=== PATIENT | female | born 1950 | race Caucasian/White ===

== ENCOUNTER 2016-07-25 09:17 | Day surgery (SDC) | payer BC ==
[2016-07-20 13:47] VITALS: BMI 41.4
[~2016-07-25 09:17] MED LIST: LACTATED RINGERS 1,000 ML IV SCH; LIDOCAINE 1% 20 ML VIAL (10MG/ML) FOR IV START INTRADERMA PRN
[2016-07-25 10:41] VITALS: RESP 16; TEMP 97.4
[2016-07-25] MEDS ORDERED: PROPOFOL 10 MG/ML 20 ML VIAL IV ONE (11:27)
--- NOTE | 2016-07-25 12:00 | P.PCN ---
Date of Procedure: 07/25/16 Procedure(s) Performed: Procedure: Total colonoscopy. Preoperative diagnosis: Screening for neoplasia. Postoperative diagnosis: Sigmoid diverticulosis with no evidence of acute diverticulitis, strictures, polyps or cancer. Preparation: HalfLytely prep. Sedation: Was provided by anesthesia. Brief clinical history: The patient is a 65-year-old female who is referred for this evaluation for screening for neoplasia. She had a prior exam around 10 years ago. There is also family history of colon cancer in her paternal grandmother. At this time, she has no abdominal complaints, bleeding or anemia. Procedure: With the patient on her left lateral decubitus position and after informed consent and adequate sedation, the perianal area was inspected and it did not show any fissures or fistulas. There were no masses felt on digital rectal examination. The Olympus CFQ 160L video colonoscope was then inserted in the rectum in the usual fashion and advanced to the cecum. There were multiple diverticular orifices seen scattered in the sigmoid and there was some mucosal changes in the vicinity of diverticular orifices including erythema and submucosal hemorrhages that could represent prior bouts of diverticulitis. Elsewhere, the mucosa appeared healthy. No polyps or tumors were seen. I retroflexed endoscope in the rectum before the endoscope was withdrawn. The patient tolerated the procedure well. Plan: The patient was reassured. Discussed dietary measures. I recommended repeat exam in around 10 years. She will follow-up with you as planned.
[2016-07-25 12:17] VITALS: BP 119/81; PULSE 74
== END 2016-07-25 12:35 | disposition home or self-care (01) ==
LOC: ORWHC2ENDO 09:17
DX: Z12.11 Encounter for screening for malignant neoplasm of colon (principal); Z80.0 Family history of malignant neoplasm of digestive organs; K57.30 Diverticulosis of large intestine without perforation or abscess without bleeding; I10 Essential (primary) hypertension; M79.7 Fibromyalgia; G47.33 Obstructive sleep apnea (adult) (pediatric); Z79.899 Other long term (current) drug therapy; Z88.0 Allergy status to penicillin; Z88.8 Allergy status to other drugs, medicaments and biological substances
CPT/HCPCS: J2704; G0105; 99153

== ENCOUNTER 2019-03-01 10:52 | Emergency (ER) | payer BC, MEDICARE ==
[2019-03-01 10:58] VITALS: RESP 18
[2019-03-01] MEDS ORDERED: SODIUM CHLORIDE 0.9% 1,000 ML IV STA (11:49)
[2019-03-01] MEDS ORDERED: METOCLOPRAMIDE 5 MG/ML 2 ML VIAL IVP STA (11:49)
[2019-03-01] MEDS ORDERED: FAMOTIDINE 20 MG/2 ML VIAL IV STA (11:51)
[2019-03-01] MEDS ORDERED: diphenhydrAMINE 50 MG/ML 1 ML VIAL IVP STA (11:51)
[2019-03-01] MEDS ORDERED: methylPREDNISolone SOD SUCCI 125 MG/2 ML VIAL IV STA (11:51)
--- NOTE | 2019-03-01 11:55 | ED ---
General Adult HPI - General Chief complaint: Headache Stated complaint: head pain Time Seen by Provider: 03/01/19 11:31 Source: patient, RN notes reviewed Mode of arrival: ambulatory Limitations: no limitations - History of Present Illness Initial comments: Patient is a pleasant 68-year-old female presenting to the emergency department with complaints of headache. Onset of symptoms was 4-5 days ago. Patient complains of left upper headaches. Discomfort can be as severe as 7/10. Discomfort is intermittent. Symptoms are rated as 7/10 and only last for a few seconds then resolved. Patient has multiple episodes throughout the day. Symptoms usually worsen as the day goes on. No associated nausea or photophobia. Patient states she has chronic eye problems including disconjugate gaze. Patient has had multiple previous surgeries. - Related Data Home Medications Medication Instructions Recorded Confirmed Calcium Carbonate/Vitamin D3 1 tab PO DAILY 07/20/16 03/01/19 [Caltrate 600 Plus D3 Tablet] Cholecalciferol [Vitamin D3] 5,000 unit PO DAILY 07/20/16 03/01/19 Estazolam 1 mg PO HS 07/20/16 03/01/19 Magnesium Gluconate [Magonate] 500 mg PO DAILY 07/20/16 03/01/19 Diphenoxylate HCl/Atropine 1 tab PO QID PRN 03/01/19 03/01/19 [Lomotil 2.5-0.025 mg Tablet] EPINEPHrine [Epipen 2-Chano] 0.3 mg IM ONCE PRN 03/01/19 03/01/19 Gabapentin [Neurontin] 300 mg PO BID@0800,1400 03/01/19 03/01/19 Gabapentin [Neurontin] 600 mg PO HS 03/01/19 03/01/19 Loperamide HCl [Imodium A-D] 4 mg PO DAILY 03/01/19 03/01/19 Losartan/Hydrochlorothiazide 1 tab PO DAILY 03/01/19 03/01/19 [Losartan-Hctz 100-12.5 mg Tab] Allergies Allergy/AdvReac Type Severity Reaction Status Date / Time Iodinated Contrast- Oral and Allergy Swelling Verified 03/01/19 11:54 IV Dye [Iodinated Contrast Media - Oral and] Penicillins Allergy Rash/Hives Verified 03/01/19 11:54 amitriptyline [From Elavil] AdvReac CAUSES Verified 03/01/19 11:54 STUTTERING cyclobenzaprine AdvReac CAUSES Verified 03/01/19 11:54 [From Flexeril] STUTTERING duloxetine [From Cymbalta] AdvReac Nausea & Verified 03/01/19 11:54 Vomiting & Diarrhea erythromycin base AdvReac Nausea & Verified 03/01/19 11:54 Vomiting & Diarrhea Review of Systems ROS Statement: Those systems with pertinent positive or pertinent negative responses have been documented in the HPI. ROS Other: All systems not noted in ROS Statement are negative. Constitutional: Denies: fever Eyes: Denies: eye pain ENT: Denies: ear pain Respiratory: Denies: cough, dyspnea Cardiovascular: Denies: chest pain Endocrine: Denies: fatigue Gastrointestinal: Denies: abdominal pain Genitourinary: Denies: dysuria Musculoskeletal: Denies: back pain Skin: Denies: rash Neurological: Reports: headache. Denies: weakness, numbness, paresthesias, confusion, abnormal gait, vertigo Past Medical History Past Medical History: Fibromyalgia, Hypertension, Osteoarthritis (OA), Sleep Apnea/CPAP/BIPAP Additional Past Medical History / Comment(s): uses cpap. DDD. SCOLIOSIS History of Any Multi-Drug Resistant Organisms: None Reported Past Surgical History: Appendectomy, Breast Surgery, Cholecystectomy, Joint Replacement, Orthopedic Surgery Additional Past Surgical History / Comment(s): BILAT TKA. BILAT EYE SX X 4. LT EYE SX. EXPLORATORY LAP W/ APPENDECTOMY. BILAT BREAST BIOPSY. RT ROTATOR CUFF REPAIR. COLONOSCOPY. LT CTR Past Anesthesia/Blood Transfusion Reactions: Motion Sickness Past Psychological History: No Psychological Hx Reported Smoking Status: Former smoker - Past Family History Father Family Medical History: Cancer Mother Family Medical History: Cancer Brother(s) Family Medical History: Cancer General Exam Limitations: no limitations General appearance: alert, in no apparent distress Head exam: Present: atraumatic, other (No tenderness over the temporal arteries) Eye exam: Present: normal appearance, PERRL, EOMI, other (Disconjugate gaze) Expanded Posterior chamber: Normal Inspection: Bilateral ENT exam: Present: normal oropharynx Neck exam: Present: normal inspection Respiratory exam: Present: normal lung sounds bilaterally Cardiovascular Exam: Present: regular rate, normal rhythm GI/Abdominal exam: Present: soft. Absent: tenderness Extremities exam: Present: normal inspection. Absent: pedal edema, calf tenderness Neurological exam: Present: alert, oriented X3, CN II-XII intact. Absent: motor sensory deficit Expanded Neurological exam: Present: protecting the airway Speech: Present: fluid speech Cranial nerves: Facial Sensation: Normal Cerebellar function: Finger to Nose: Normal Sensory exam: Upper Extremity Light Touch: Normal, Lower Extremity Light Touch: Normal Motor strength exam: RUE: 5, LUE: 5, RLE: 5, LLE: 5 Eye Response: (4) open spontaneously Motor Response: (6) obeys commands Verbal Response: (5) oriented Psychiatric exam: Present: normal affect, normal mood Skin exam: Present: normal color Course Vital Signs 03/01/19 10:54 Temperature 98 F Pulse Rate 81 Respiratory 18 Rate Blood Pressure 163/89 O2 Sat by Pulse 97 Oximetry Medical Decision Making - Medical Decision Making Patient reevaluated and improved following medication. Patient is comfortable with discharge home. Patient updated on results and need for follow-up. - Lab Data Result diagrams: 03/01/19 12:05 03/01/19 12:05 Lab Results 03/01/19 03/01/19 03/01/19 Range/Units 12:05 12:05 12:05 WBC 5.8 (3.8-10.6) k/uL RBC 4.62 (3.80-5.40) m/uL Hgb 12.2 (11.4-16.0) gm/dL Hct 36.9 (34.0-46.0) % MCV 80.0 (80.0-100.0) fL MCH 26.4 (25.0-35.0) pg MCHC 33.1 (31.0-37.0) g/dL RDW 15.4 (11.5-15.5) % Plt Count 265 (150-450) k/uL Neutrophils % 71 % Lymphocytes % 20 % Monocytes % 4 % Eosinophils % 3 % Basophils % 0 % Neutrophils # 4.1 (1.3-7.7) k/uL Lymphocytes # 1.1 (1.0-4.8) k/uL Monocytes # 0.2 (0-1.0) k/uL Eosinophils # 0.2 (0-0.7) k/uL Basophils # 0.0 (0-0.2) k/uL ESR 32 H (0-20) mm/hr PT 10.5 (9.0-12.0) sec INR 1.0 (<1.2) APTT 27.9 (22.0-30.0) sec Sodium 138 (137-145) mmol/L Potassium 4.6 (3.5-5.1) mmol/L Chloride 101 (98-107) mmol/L Carbon Dioxide 30 (22-30) mmol/L Anion Gap 7 mmol/L BUN 22 H (7-17) mg/dL Creatinine 1.28 H (0.52-1.04) mg/dL Est GFR (CKD-EPI)AfAm 51 (>60 ml/min/1.73 sqM) Est GFR (CKD-EPI)NonAf 44 (>60 ml/min/1.73 sqM) Glucose 98 (74-99) mg/dL Calcium 9.5 (8.4-10.2) mg/dL - Radiology Data Radiology results: report reviewed (Computed tomography scan of the brain shows atrophy, no acute process. CT angiogram reveals no evidence of aneurysm) Disposition Clinical Impression: Headache Disposition: HOME SELF-CARE Condition: Stable Instructions (If sedation given, give patient instructions): Acute Headache (ED) Additional Instructions: Please follow-up with primary care physician in the next couple of days for recheck. Return for increased pain, weakness, confusion, fevers, worsening or change in symptoms or other concerns. Is patient prescribed a controlled substance at d/c from ED?: No Referrals: Arash Willett MD [Primary Care Provider] - 1-2 days Time of Disposition: 13:45
[2019-03-01 12:27] LABS: Basophils % (A) 0 %; Eosinophils # (A) 0.2 k/uL (0-0.7); Eosinophils % (A) 3 %; HCT 36.9 % (34.0-46.0); HGB 12.2 gm/dL (11.4-16.0); Lymphocytes # (A) 1.1 k/uL (1.0-4.8); Lymphocytes % (A) 20 %; MCH 26.4 pg (25.0-35.0); MCHC 33.1 g/dL (31.0-37.0); Mean Platelet Volume 6.8; Monocytes # (A) 0.2 k/uL (0-1.0); Monocytes % (A) 4 %; Neutrophils # (A) 4.1 k/uL (1.3-7.7); Neutrophils % (A) 71 %; Platelet Count 265 k/uL (150-450); RBC 4.62 m/uL (3.80-5.40); RDW 15.4 % (11.5-15.5); WBC 5.8 k/uL (3.8-10.6)
[2019-03-01 12:35] LABS: Calcium 9.5 mg/dL (8.4-10.2); Potassium 4.6 mmol/L (3.5-5.1)
[2019-03-01 12:37] LABS: Partial Thromboplastin Time 27.9 sec (22.0-30.0); Prothrombin Time 10.5 sec (9.0-12.0)
--- NOTE | 2019-03-01 13:11 | CT ---
EXAMINATION TYPE: CT brain wo con DATE OF EXAM: 03/01/2019 HISTORY: headache CT DLP: 1032 mGycm. Automated Exposure Control for Dose Reduction was Utilized. TECHNIQUE: CT scan of the head is performed without contrast. COMPARISON: None. FINDINGS: There is no acute intracranial hemorrhage or midline shift identified. There is diffuse v entricular and sulcal prominence consistent with diffuse age-related cerebral atrophy. Willis-white mat ter differentiation is fairly well preserved. The globes are intact and the visualized sinuses are c lear. IMPRESSION: No acute intracranial hemorrhage or midline shift. There is mild to moderate diffuse ag e-related cerebral atrophy noted.
[2019-03-01 13:13] LABS: Erythrocyte Sedimentation Rate 32 mm/hr (0-20)
--- NOTE | 2019-03-01 13:36 | CT ---
EXAMINATION TYPE: CT angio head DATE OF EXAM: 03/01/2019 1:16 PM COMPARISON: Same day noncontrast brain CT HISTORY: headache CT DLP: 869.2 mGycm Automated exposure control for dose reduction was used. TECHNIQUE: Performed with IV Contrast, patient injected with 50 mL of Isovue 370. 3-D reconstructed images were created on a workstation and reviewed. . FINDINGS: [id number] calcified plaque supraclinoid segment distal internal carotid arteries bilaterally. Patent anterior communicating artery. No significant focal stenosis or aneurysmal change in the anter ior circulation. Posterior circulation shows codominant vertebrobasilar system. Patent bilateral posterior communicati ng arteries are seen. There is no significant focal stenosis or aneurysmal change. IMPRESSION: No aneurysmal change at the level of the aug[place]ine of [place].
[2019-03-01 13:52] VITALS: BP 144/82; PULSE 76; TEMP 97.7
== END 2019-03-01 14:06 | disposition home or self-care (01) ==
LOC: EC 10:52
DX: R51 Headache (principal); I10 Essential (primary) hypertension; G47.30 Sleep apnea, unspecified; M19.90 Unspecified osteoarthritis, unspecified site; Z79.899 Other long term (current) drug therapy; Z88.0 Allergy status to penicillin; Z88.1 Allergy status to other antibiotic agents; Z91.041 Radiographic dye allergy status; Z88.8 Allergy status to other drugs, medicaments and biological substances; Z87.891 Personal history of nicotine dependence; Z96.653 Presence of artificial knee joint, bilateral; Z99.89 Dependence on other enabling machines and devices
CPT/HCPCS: 36415; 80048; 85652; 85025; 85610; 85730; 70496; 70450; 99284; 96374; 96375 ×3; 96361; J1200; J2765; J2930; Q9967

== ENCOUNTER → 2019-06-18 | Outpatient (CLI) | payer BC, MEDICARE ==
--- NOTE | 2019-06-18 14:02 | BD ---
EXAMINATION TYPE: Axial Bone Density DATE OF EXAM: 06/18/2019 COMPARISON: NONE CLINICAL HISTORY: Height: 59 Weight: 222.4 FRAX RISK QUESTIONS: Alcohol (3 or more units per day): no Family History (Parent hip fracture): no Glucocorticoids (More than 3mos): no (Ex: prednisone, prednisolone, methylprednisolone, dexamethasone, and hydrocortisone). History of Fracture in Adulthood: no Secondary Osteoporosis: 1. Type 1 Diabetes: no 2. Hyperthyroidism: no 3. Menopause before 45: no 4. Malnutrition: no 5. Chronic liver disease: no Rheumatoid Arthritis: no Current Tobacco Use: no RISK FACTORS HISTORY OF: Family History of Osteoporosis: yes Active: yes Diet low in dairy products/other sources of calcium: yes Postmenopausal woman: age57 Lost more than 2 inches in height since high school: no MEDICATIONS: losartan, gabapentin, estazolam, lomotil, meloxicam, dicyclomin, vitamins Additional History: EXAM MEASUREMENTS: Bone mineral densitometry was performed using the [employer] System. Bone mineral density as measured about the Lumbar spine is: ----- L1-L4(G/cm2): 1.569 T Score Values are as follows: ----- L2: 2.1 ----- L3: 3.5 ----- L4: 4.4 ----- L1-L4: 3.2 Bone mineral density : baseline Bone mineral density about the R hip (g/cm2): 0.906 Bone mineral density about the L hip (g/cm2): 0.939 T Score values are as follows: -----R Neck: -0.9 -----L Neck: -0.7 -----R Total: 0.3 -----L Total: 0.6 Bone mineral density : baseline IMPRESSION: Normal (Values between +1 and -1 indicate normal bone mass). Consider repeating this study in 5 year s or sooner if there is some new clinical indication. NOTE: T-SCORE=SD OF THE YOUNG ADULT MEAN.
--- NOTE | 2019-06-20 14:28 | MM ---
Reason for exam: screening (asymptomatic). Last mammogram was performed 3 years and 3 months ago. History: Patient is postmenopausal. Benign left mammotome panel of the left breast, March 29, 2013. Benign excisional biopsy of the right breast, 2002. Benign excisional biopsy of the left breast, 1970. Took hormonal contraceptives for 10 years beginning at age 22. Physical Findings: A clinical breast exam by your physician is recommended on an annual basis and results should be correlated with mammographic findings. MG 3D Screening Mammo W/Cad Bilateral CC and MLO view(s) were taken. Prior study comparison: March 29, 2016, bilateral MG screening mammo w CAD. March 25, 2015, bilateral MG screening mammo w CAD. There are scattered fibroglandular densities. Previous mammotome biopsy in the left breast. New 6mm nodularity centrally right breast just lateral to the retroareolar plane. New 8mm nodularity centrally at 6 o'clock left breast. ASSESSMENT: Incomplete: need additional imaging evaluation, BI-RAD 0 RECOMMENDATION: Special view mammogram and ultrasound of both breasts. [facility] will attempt to contact patient to return for supplemental views and ultrasound. TERESA
== END | disposition home or self-care (01) ==
LOC: RADMAMWWP 06:47
PROVIDERS: ATTEND Family Medicine
DX: Z12.31 Encounter for screening mammogram for malignant neoplasm of breast (principal); Z78.0 Asymptomatic menopausal state
CPT/HCPCS: 77063; 77067; 77080

== ENCOUNTER → 2019-06-28 | Outpatient (CLI) | payer BC, MEDICARE ==
--- NOTE | 2019-07-01 08:15 | MM ---
Reason for exam: additional evaluation requested from abnormal screening. Last mammogram was performed less than 1 month ago. History: Patient is postmenopausal. Benign left mammotome panel of the left breast, March 29, 2013. Benign excisional biopsy of the right breast, 2002. Benign excisional biopsy of the left breast, 1970. Took hormonal contraceptives for 10 years beginning at age 22. Physical Findings: Nurse did not find any significant physical abnormalities on exam. MG 3D Work Up W/Cad SILVIO Bilateral CC and MLO view(s) were taken. Prior study comparison: June 18, 2019, bilateral MG 3d screening mammo w/cad. March 29, 2016, bilateral MG screening mammo w CAD. Finding #1: There is a 8 mm oval mass located 8 cm from the nipple in the lower quadrant, posterior position of the left breast. Finding #2: There is a 6 mm round mass located 6-7 cm from the nipple in the right breast zone B. These results were verbally communicated with the patient and result sheet given to the patient on 06/28/19. ASSESSMENT: Incomplete: need additional imaging evaluation, BI-RAD 0 RECOMMENDATION: Ultrasound of both breasts.
--- NOTE | 2019-07-01 08:17 | USB ---
Reason for exam: additional evaluation requested from abnormal screening. History: Patient is postmenopausal. Benign left mammotome panel of the left breast, March 29, 2013. Benign excisional biopsy of the right breast, 2002. Benign excisional biopsy of the left breast, 1970. Took hormonal contraceptives for 10 years beginning at age 22. US Breast Workup Limited SILVIO Right limited breast ultrasound including focal area of concern, retroareolar and axilla demonstrates a 5 x 4 x 5mm oval, cystic lesion at 9 o'clock. Left limited breast ultrasound including focal area of concern, retroareolar and axilla demonstrates a 7 x 5 x 8mm oval, cystic lesion at 6 o'clock. Simple cysts. These results were verbally communicated with the patient and result sheet given to the patient on 06/28/19. ASSESSMENT: Benign, BI-RAD 2 RECOMMENDATION: Return to routine screening mammogram schedule for both breasts.
== END | disposition home or self-care (01) ==
LOC: RADMAMWWP 14:06
PROVIDERS: ATTEND Family Medicine
DX: R92.8 Other abnormal and inconclusive findings on diagnostic imaging of breast (principal)
CPT/HCPCS: 77062; 77066

== ENCOUNTER → 2020-02-21 | Day surgery (SDC) | payer BC, MEDICARE ==
[2020-02-19 11:05] VITALS: BMI 44.9
[~2020-02-21] MED LIST changes: +ACETAMINOPHEN TAB 325 MG TAB PO SCH; +ACETAMINOPHEN TAB 500 MG TAB PO ONE; +BUPIVACAINE (PF) 0.25% 30 ML VIAL SQ ONE; +DEXAMETHASONE SOD PHOSPHATE 10 MG/ML 1 ML VIAL IV ONE; +GLYCOPYRROLATE 0.2 MG/ML 2 ML VIAL ONE; +HEPARIN SODIUM,PORCINE 5,000 UNIT/ML 1 ML VIAL SQ ONE; +HYDROcodone/APAP 5-325MG 1 EACH TAB ONE; +HYDROcodone/APAP 5-325MG 1 EACH TAB PO ONE; +HYDROmorphone 0.5 MG/0.5 ML SYRINGE IVP PRN; +IBUPROFEN 600 MG TAB PO SCH; +KETOROLAC 15 MG/ML 1 ML VIAL ONE; +LACTATED RINGERS 1,000 ML IV ONE; +LIDOCAINE 1% (10MG/ML) FOR IV START INTRADERMA PRN; -LIDOCAINE 1% 20 ML VIAL (10MG/ML) FOR IV START INTRADERMA PRN; +LIDOCAINE 1% INJ 10MG/ML (20 ML MDV) ONE; +MIDAZOLAM 2 MG/2 ML VIAL IV PRN; +MIDAZOLAM 2 MG/2 ML VIAL ONE; +NEOSTIGMINE 1 MG/ML 10 ML VIAL ONE; +ONDANSETRON 4 MG/2 ML VIAL IVP ONE; +PHENYLEPHRINE-0.9% NACL SYG 1 MG/10 ML SYRINGE ONE; +PROPOFOL 10 MG/ML 20 ML VIAL IV ONE; +ROCURONIUM BROMIDE 10 MG/ML 5 ML VIAL IV ONE; +SUCCINYLCHOLINE CHLORIDE VIAL 200 MG/10 ML VIAL IV ONE; +fentaNYL (PF) 50 MCG/ML 2 ML AMP ONE
--- NOTE | 2020-02-21 08:10 | P.GSHP ---
History of Present Illness H&P Date: 02/21/20 Chief Complaint: Umbilical hernia 69-year-old female complains of a hernia at her umbilicus. In increasing in size recently with some discomfort. History of previous lower midline incision for appendectomy and bowel resection. No nausea or vomiting. No change in bowel habits. Recently noticed the hernia doubled in size. Past Medical History Past Medical History: Eye Disorder, Fibromyalgia, Hypertension, Osteoarthritis (OA), Pneumonia, Sleep Apnea/CPAP/BIPAP Additional Past Medical History / Comment(s): Eyes don't focus together, muscle issue. Pneumonia early 2019; recent Pulmonary clearance. Uses cpap. Varicose veins. IBS. Umb hernia. DDD, stenosis, SCOLIOSIS, sciatic pain in legs. History of Any Multi-Drug Resistant Organisms: None Reported Past Surgical History: Appendectomy, Breast Surgery, Cholecystectomy, Joint Replacement, Orthopedic Surgery Additional Past Surgical History / Comment(s): BILAT TKA. CTR Lt hand. BILAT EYE SX X 4; Cataracts bilat; LT EYE SX. EXPLORATORY LAP W/ APPENDECTOMY. BILAT BREAST BIOPSY. Lt ROTATOR CUFF REPAIR. COLONOSCOPY. LT CTR Past Anesthesia/Blood Transfusion Reactions: Previous Problems w/ Anesthesia, Motion Sickness Additional Past Anesthesia/Blood Transfusion Reaction / Comment(s): Occ wakes up cold, shivering. Smoking Status: Former smoker - Past Family History Father Family Medical History: Cancer Mother Family Medical History: Cancer Additional Family Medical History / Comment(s): lung cancer Brother(s) Family Medical History: Cancer, Pulmonary Embolus Additional Family Medical History / Comment(s): pancreas cancer Daughter(s) Family Medical History: Deep Vein Thrombosis (DVT) Additional Family Medical History / Comment(s): DVT in roxann legs up to abd, May- Thurner Syndrome - iliac vein narrowing; has MS Medications and Allergies Home Medications Medication Instructions Recorded Confirmed Type Calcium Carbonate/Vitamin D3 1 tab PO DAILY 07/20/16 02/19/20 History [Caltrate 600 Plus D3 Tablet] Cholecalciferol [Vitamin D3] 5,000 unit PO DAILY 07/20/16 02/19/20 History Estazolam 1 mg PO HS 07/20/16 02/19/20 History Magnesium Gluconate [Magonate] 500 mg PO DAILY 07/20/16 02/19/20 History Diphenoxylate HCl/Atropine 1 tab PO QID PRN 03/01/19 02/19/20 History [Lomotil 2.5-0.025 mg Tablet] EPINEPHrine [Epipen 2-Chano] 0.3 mg IM ONCE PRN 03/01/19 02/19/20 History Gabapentin [Neurontin] 300 mg PO BID@0800,1400 03/01/19 02/19/20 History Gabapentin [Neurontin] 600 mg PO HS 03/01/19 02/19/20 History Dicyclomine [Bentyl] 20 mg PO QID 02/19/20 02/19/20 History Losartan Potassium [Cozaar] 100 mg PO DAILY 02/19/20 02/19/20 History Meloxicam [Mobic] 15 mg PO DAILY 02/19/20 02/19/20 History hydroCHLOROthiazide [Hydrodiuril] 12.5 mg PO DAILY 02/19/20 02/19/20 History Allergies Allergy/AdvReac Type Severity Reaction Status Date / Time bee venom protein (honey bee) Allergy Anaphylaxis Verified 02/19/20 10:23 Iodinated Contrast Media Allergy Swelling Verified 02/19/20 10:23 [Iodinated Contrast Media - Oral and] Penicillins Allergy Rash/Hives Verified 02/19/20 10:23 amitriptyline [From Elavil] AdvReac CAUSES Verified 02/19/20 10:23 STUTTERING cyclobenzaprine AdvReac CAUSES Verified 02/19/20 10:23 [From Flexeril] STUTTERING duloxetine [From Cymbalta] AdvReac Nausea & Verified 02/19/20 10:23 Vomiting & Diarrhea erythromycin base AdvReac Nausea & Verified 02/19/20 10:23 Vomiting & Diarrhea Surgical - Exam Physical exam: General: Well-developed, well-nourished HEENT: Normocephalic, sclerae nonicteric Abdomen: Nontender, nondistended, nontender nonreducible moderate size umbilical hernia very thin overlying umbilical dermis Extremities: No edema Neuro: Alert and oriented Assessment and Plan (1) Incarcerated umbilical hernia Narrative/Plan: Will proceed with repair incarcerated umbilical hernia with mesh. Risks of bleeding, infection, recurrence, bladder and bowel injury, numbness, nerve injury, ischemia to the overlying dermis of the umbilicus with possible need for umbolectomy, were discussed with the patient. The patient understands and wishes to proceed. Status: Acute Code(s): K42.0 - UMBILICAL HERNIA WITH OBSTRUCTION, WITHOUT GANGRENE SNOMED Code(s): 350526879
[2020-02-21 09:44] VITALS: RESP 16
--- NOTE | 2020-02-21 13:45 | P.OP ---
Date of Procedure: 02/21/20 Procedure(s) Performed: PREOPERATIVE DIAGNOSIS: Incarcerated umbilical hernia POSTOPERATIVE DIAGNOSIS: Same PROCEDURE: Repair incarcerated umbilical hernia with mesh SURGEON: Sadia EBL: Minimal ANESTHESIA: General COMPLICATIONS: None OPERATIVE PROCEDURE: The patient was placed in the operating table in the supine position. A periumbilical incision was made using the scalpel. The subcutaneous tissues were dissected bluntly. The hernia sac was identified. The umbilical attachments to the fascia were divided using electrocautery. The hernia sac was excised. The hernia sac was sent to pathology. The preperitoneal space was dissected both bluntly and using electrocautery.Was made for a 6.4 cm ventral ex mesh. This was placed beneath the fascia and sutured in place using trans-fascial 0 Ethibond sutures. The defect was closed using interrupted vest over pants 0 Ethibond sutures. The subcutaneous tissues were reapproximated using interrupted 3-0 Vicryl sutures. The umbilicus was tacked back down to the fascia using a 3-0 Vicryl suture. The skin was closed using 4- 0 Monocryl sutures. Skin glue and sterile dressings were then applied. DISPOSITION: Stable to recovery room
[2020-02-21 14:40] VITALS: TEMP 97.4
[2020-02-21 15:27] VITALS: BP 135/75; PULSE 82
== END ==
LOC: OR 09:13
PROVIDERS: ATTEND Surgery
DX: K42.0 Umbilical hernia with obstruction, without gangrene (principal); Z91.041 Radiographic dye allergy status; Z88.1 Allergy status to other antibiotic agents; Z88.8 Allergy status to other drugs, medicaments and biological substances; Z91.030 Bee allergy status; G47.33 Obstructive sleep apnea (adult) (pediatric); I10 Essential (primary) hypertension; K21.9 Gastro-esophageal reflux disease without esophagitis; K58.9 Irritable bowel syndrome, unspecified; M79.7 Fibromyalgia; F41.9 Anxiety disorder, unspecified; E66.01 Morbid (severe) obesity due to excess calories; F32.9 Major depressive disorder, single episode, unspecified; I83.90 Asymptomatic varicose veins of unspecified lower extremity; M41.9 Scoliosis, unspecified; M19.90 Unspecified osteoarthritis, unspecified site; K57.90 Diverticulosis of intestine, part unspecified, without perforation or abscess without bleeding; Z90.49 Acquired absence of other specified parts of digestive tract; Z98.890 Other specified postprocedural states; Z99.89 Dependence on other enabling machines and devices; Z87.891 Personal history of nicotine dependence; Z79.899 Other long term (current) drug therapy; Z87.01 Personal history of pneumonia (recurrent); Z98.41 Cataract extraction status, right eye; Z98.42 Cataract extraction status, left eye; Z96.653 Presence of artificial knee joint, bilateral; Z80.1 Family history of malignant neoplasm of trachea, bronchus and lung; Z82.49 Family history of ischemic heart disease and other diseases of the circulatory system; Z80.0 Family history of malignant neoplasm of digestive organs; Z79.1 Long term (current) use of non-steroidal anti-inflammatories (NSAID); Z80.42 Family history of malignant neoplasm of prostate; Z82.61 Family history of arthritis; Z82.5 Family history of asthma and other chronic lower respiratory diseases; Z68.42 Body mass index [BMI] 45.0-49.9, adult
CPT/HCPCS: 49587; 88302; C1781; J2250; J0330; J1644; J1100; J2710; J0690; J2405; J2001; J3010; J1885; J2370; J2704; J1170

== ENCOUNTER → 2020-08-28 | Outpatient (CLI) | payer BC, MEDICARE ==
[2020-08-28 23:13] LABS: Luteinizing Hormone 35.9 mIU/mL
[2020-08-28 23:14] LABS: Follicle Stimulating Hormone 70.7 mIU/mL
[2020-08-28 23:17] LABS: Basophils # (A) 0.03 X 10*3/uL (0.00-0.10); Basophils % (A) 0.4 %; Eosinophils % (A) 2.9 %; HCT 37.3 % (37.2-46.3); HGB 11.8 g/dL (12.0-15.0); Lymphocytes # (A) 1.61 X 10*3/uL (0.90-5.00); Lymphocytes % (A) 23.1 %; MCH 26.3 pg (27.0-32.0); MCHC 31.6 g/dL (32.0-37.0); MCV 83.3 fL (80.0-97.0); Mean Platelet Volume 9.4 fL (9.5-12.2); Monocytes # (A) 0.42 X 10*3/uL (0.20-1.00); Neutrophils % (A) 67.5 %; Platelet Count 289 X 10*3/uL (140-440); RBC 4.48 X 10*6/uL (4.10-5.20); RDW 15.5 % (11.5-14.5); Reticulocyte % 2.03 % (0.10-1.80); WBC 6.97 X 10*3/uL (4.50-10.00)
[2020-08-28 23:48] LABS: Hemoglobin A1C 6.1 % (4.0-6.0)
[2020-08-29 04:31] LABS: T4, Free (Free Thyroxine) 1.3 ng/dL (0.80-1.80)
[2020-08-29 04:48] LABS: % Iron Saturation 21.52 (12.00-45.00); African American GFR (CKD) 44.9 (60.0-200.0); Albumin 4.2 g/dL (3.80-4.90); Albumin/Globulin Ratio 1.91 (1.60-3.17); Anion Gap 8.3 mmol/L (4.00-12.00); Calcium 9.6 mg/dL (8.7-10.3); Carbon Dioxide 31.7 mmol/L (21.6-31.8); Globulin 2.2 g/dL (1.6-3.3); Non-African American GFR(CKD) 38.8 (60.0-200.0); Potassium 4.6 mmol/L (3.5-5.5); Total Bilirubin 0.4 mg/dL (0.3-1.2); Total Protein 6.4 g/dL (6.2-8.2)
[2020-08-31 15:16] LABS: Growth Hormone, Human 0.6 ng/mL (<10)
== END | disposition home or self-care (01) ==
LOC: LABWHC1 14:35
PROVIDERS: ATTEND Psychiatry & Neurology Pain Medicine
DX: Z51.81 Encounter for therapeutic drug level monitoring (principal); R53.83 Other fatigue
CPT/HCPCS: 36415; 80053; 82306; 82533; 82550; 82607; 82626; 82668; 82728; 82746; 83001; 83002; 83003; 83036; 83540; 83550; 84207; 84305; 84439; 84443; 84466; 84481; 85025; 85045; 86140

== ENCOUNTER → 2020-10-12 | Outpatient (CLI) | payer BC, MEDICARE ==
--- NOTE | 2020-10-12 09:31 | CT ---
EXAMINATION TYPE: CT abdomen pelvis wo con DATE OF EXAM: 10/12/2020 HISTORY: Hydronephrosis CT DLP: 991.80 mGycm. Automated Exposure Control for Dose Reduction was Utilized. TECHNIQUE: CT scan of the abdomen and pelvis is performed without oral or IV contrast. COMPARISON: CT March 05, 2014 FINDINGS: Within the limitations of a non-contrast study, the following observations are made. LUNG BASES: No significant abnormality is appreciated. LIVER/GB: Cholecystectomy clips are redemonstrated. PANCREAS: No significant abnormality is seen. SPLEEN: No significant abnormality is seen. ADRENALS: No significant abnormality is seen. KIDNEYS:. There is persistent cortical thinning in both kidneys. No renal calculi identified bilatera lly. There is some prominence of the renal pelvises bilaterally without calyceal dilatation. No april rning solid or cystic renal masses on noncontrast CT. No intraluminal calculi in poorly distended armando dder. BOWEL: Suboptimal evaluation of bowel without enteric contrast. Some high dense material in left side d small bowel loops could reflect ingested food products. No suspicious small or large bowel dilatati on. Diverticula in the left and sigmoid colon without CT evidence for acute diverticulitis. GENITAL ORGANS: Anteverted uterus. Few scattered bilateral pelvic phleboliths. LYMPH NODES: No greater than 1cm abdominal or pelvic lymph nodes are appreciated. OSSEOUS STRUCTURES: Slight grade 1 anterolisthesis L4 on L5. Slight grade 1 retrolisthesis L1 on L2 a nd L2-L3. Moderate to severe multilevel disc space narrowing in the upper to mid lumbar spine. Facet arthropathy mid to lower lumbar levels. OTHER: No significant additional abnormality is seen. IMPRESSION: Evidence of chronic medical renal disease bilaterally. No hydronephrosis seen currently.
== END | disposition home or self-care (01) ==
LOC: RADCTMAIN 08:43
PROVIDERS: ATTEND Urology
DX: N18.9 Chronic kidney disease, unspecified (principal); Z88.0 Allergy status to penicillin; Z88.1 Allergy status to other antibiotic agents; Z91.041 Radiographic dye allergy status
CPT/HCPCS: 74176

== ENCOUNTER → 2020-11-25 | Outpatient (CLI) | payer BC, MEDICARE ==
[2020-11-25 17:03] LABS: Appearance,Urine Clear (Clear); Bilirubin,Urine Negative (Negative); Blood,Urine Negative (Negative); Color,Urine Light Yellow; Glucose,Urine (UA) Negative (Negative); Ketones,Urine Negative (Negative); Leukocyte Esterase,Urine Negative (Negative); Nitrite,Urine Negative (Negative); PH, Urine 6.5 (5.0-8.0); Protein,Urine Negative (Negative); Specific Gravity,Urine 1.007 (1.001-1.035); Urobilinogen,Urine <2.0 mg/dL (<2.0)
[2020-11-25 19:16] LABS: HCT 36.6 % (37.2-46.3); HGB 11.6 g/dL (12.0-15.0); MCH 26.3 pg (27.0-32.0); MCHC 31.7 g/dL (32.0-37.0); Mean Platelet Volume 9.3 fL (9.5-12.2); Platelet Count 304 X 10*3/uL (140-440); RBC 4.41 X 10*6/uL (4.10-5.20); RDW 14.8 % (11.5-14.5); WBC 5.73 X 10*3/uL (4.50-10.00)
[2020-11-25 21:25] LABS: % Iron Saturation 14.14 (12.00-45.00); African American GFR (CKD) 59.7 (60.0-200.0); Albumin 4.1 g/dL (3.80-4.90); Albumin/Globulin Ratio 1.64 (1.60-3.17); Anion Gap 7.5 mmol/L (4.00-12.00); BUN/Creat Ratio 12.73 Ratio (12.00-20.00); Calcium 10.6 mg/dL (8.7-10.3); Carbon Dioxide 30.5 mmol/L (21.6-31.8); Globulin 2.5 g/dL (1.6-3.3); Magnesium 1.7 mg/dL (1.5-2.4); Non-African American GFR(CKD) 51.5 (60.0-200.0); Phosphorus 3.8 mg/dL (2.4-5.1); Potassium 3.8 mmol/L (3.5-5.5); Total Bilirubin 0.5 mg/dL (0.2-1.2); Total Protein 6.6 g/dL (6.2-8.2); Uric Acid 8.1 mg/dL (2.9-7.7)
[2020-11-25 21:36] LABS: Ferritin 95.6 ng/mL (10.0-291.0)
== END | disposition home or self-care (01) ==
LOC: LABWHC1 14:53
PROVIDERS: ATTEND Internal Medicine
DX: N18.30 Chronic kidney disease, stage 3 unspecified (principal); D64.9 Anemia, unspecified; N39.0 Urinary tract infection, site not specified; N25.81 Secondary hyperparathyroidism of renal origin; E55.9 Vitamin D deficiency, unspecified; M10.9 Gout, unspecified
CPT/HCPCS: 36415; 80053; 81003; 82306; 82728; 83540; 83550; 83735; 83970; 84100; 84550; 85027

== ENCOUNTER 2020-12-02 19:28 | Emergency (ER) | payer BC, MEDICARE ==
[2020-12-02] MEDS ORDERED: SODIUM CHLORIDE 0.9% 1,000 ML IV STA (19:51)
[2020-12-02] MEDS ORDERED: ONDANSETRON 4 MG/2 ML VIAL IVP STA (19:51)
--- NOTE | 2020-12-02 19:56 | ED ---
Nausea/Vomiting/Diarrhea HPI - General Chief complaint: Nausea/Vomiting/Diarrhea Stated complaint: NVD Time Seen by Provider: 12/02/20 19:40 Source: patient, RN notes reviewed Mode of arrival: wheelchair Limitations: no limitations - History of Present Illness Initial comments: Patient is a 70-year-old female that presents to emergency department compla ining of nausea and minimal diarrhea starting early this morning. She notes that she does have a history of irritable bowel syndrome and took both of her at home medications as prescribed. She notes one is a daily medication other 1 is a take as needed medication. Patient notes that she's been nauseous dry heaving but has not vomited yet. She noted that she is most worried about being dehydrated as she has not had much of an appetite and has not drank much today. She notes that she does have class IIIB chronic kidney failure that she recently found out that routine lab testing. Patient denied any pain or distress. She denied any chest pain shortness of breath headache vomiting constipation fever fatigue chills. - Related Data Home Medications Medication Instructions Recorded Confirmed Calcium Carbonate/Vitamin D3 1 tab PO DAILY 07/20/16 02/19/20 [Caltrate 600 Plus D3 20 Mcg (800 Iu)] Cholecalciferol [Vitamin D3] 5,000 unit PO DAILY 07/20/16 02/19/20 Estazolam 1 mg PO HS 07/20/16 02/19/20 Magnesium Gluconate [Magonate] 500 mg PO DAILY 07/20/16 02/19/20 Diphenoxylate HCl/Atropine 1 tab PO QID PRN 03/01/19 02/21/20 [Lomotil 2.5-0.025 mg Tablet] EPINEPHrine [Epipen 2-Chano] 0.3 mg IM ONCE PRN 03/01/19 02/19/20 Gabapentin [Neurontin] 300 mg PO BID@0800,1400 03/01/19 02/19/20 Gabapentin [Neurontin] 600 mg PO HS 03/01/19 02/19/20 Dicyclomine [Bentyl] 20 mg PO QID 02/19/20 02/19/20 Losartan Potassium [Cozaar] 100 mg PO DAILY 02/19/20 02/19/20 Meloxicam [Mobic] 15 mg PO DAILY 02/19/20 02/19/20 hydroCHLOROthiazide [Hydrodiuril] 12.5 mg PO DAILY 02/19/20 02/19/20 Previous Rx's Medication Instructions Recorded Hydrocodone/Acetaminophen [[place] 1 tab PO Q6HR PRN 3 Days #6 tab 02/21/20 5-325] Ondansetron Odt [Zofran Odt] 4 mg PO Q8HR PRN 5 Days #15 tab 12/02/20 Allergies Allergy/AdvReac Type Severity Reaction Status Date / Time bee venom protein (honey bee) Allergy Anaphylaxis Verified 12/02/20 19:33 Iodinated Contrast Media Allergy Swelling Verified 12/02/20 19:33 [Iodinated Contrast Media - Oral and] Penicillins Allergy Rash/Hives Verified 12/02/20 19:33 amitriptyline [From Elavil] AdvReac CAUSES Verified 12/02/20 19:33 STUTTERING cyclobenzaprine AdvReac stuttering Verified 12/02/20 19:34 [From Flexeril] duloxetine [From Cymbalta] AdvReac Nausea & Verified 12/02/20 19:33 Vomiting & Diarrhea erythromycin base AdvReac Nausea & Verified 12/02/20 19:33 Vomiting & Diarrhea NSAIDS (Non-Steroidal AdvReac none Verified 12/02/20 19:34 Anti-Inflamma Review of Systems ROS Statement: Those systems with pertinent positive or pertinent negative responses have been documented in the HPI. ROS Other: All systems not noted in ROS Statement are negative. Past Medical History Past Medical History: Fibromyalgia, Hypertension, Osteoarthritis (OA), Sleep Apnea/CPAP/BIPAP Additional Past Medical History / Comment(s): uses cpap. DDD. SCOLIOSIS. IBS History of Any Multi-Drug Resistant Organisms: None Reported Past Surgical History: Appendectomy, Orthopedic Surgery Additional Past Surgical History / Comment(s): BILAT TKA. BILAT EYE SX X 4. LT EYE SX. EXPLORATORY LAP W/ APPENDECTOMY. BILAT BREAST BIOPSY. RT ROTATOR CUFF REPAIR. COLONOSCOPY. LT CTR Past Anesthesia/Blood Transfusion Reactions: Motion Sickness Additional Past Anesthesia/Blood Transfusion Reaction / Comment(s): Occ wakes up cold, shivering. Past Psychological History: No Psychological Hx Reported Smoking Status: Former smoker Past Alcohol Use History: None Reported Past Drug Use History: None Reported - Past Family History Father Family Medical History: Cancer Mother Family Medical History: Cancer Additional Family Medical History / Comment(s): lung cancer Brother(s) Family Medical History: Cancer, Pulmonary Embolus Additional Family Medical History / Comment(s): pancreas cancer Daughter(s) Family Medical History: Deep Vein Thrombosis (DVT) Additional Family Medical History / Comment(s): DVT in roxann legs up to abd, May- Thurner Syndrome - iliac vein narrowing; has MS General Exam Limitations: no limitations General appearance: alert, in no apparent distress Head exam: Present: atraumatic, normocephalic, normal inspection Eye exam: Present: normal appearance, PERRL, EOMI. Absent: scleral icterus, conjunctival injection, periorbital swelling Neck exam: Present: normal inspection Respiratory exam: Present: normal lung sounds bilaterally. Absent: respiratory distress, wheezes, rales, rhonchi, stridor Cardiovascular Exam: Present: regular rate, normal rhythm, normal heart sounds. Absent: systolic murmur, diastolic murmur, rubs, gallop, clicks GI/Abdominal exam: Present: soft, normal bowel sounds, other (Generalized discomfort). Absent: distended, tenderness, guarding, rebound, rigid Extremities exam: Present: normal inspection, full ROM, normal capillary refill. Absent: tenderness, pedal edema, joint swelling, calf tenderness Neurological exam: Present: alert, oriented X3, CN II-XII intact Psychiatric exam: Present: normal affect, normal mood Skin exam: Present: warm, dry, intact, normal color. Absent: rash Course Vital Signs 12/02/20 19:29 Temperature 98.2 F Pulse Rate 89 Respiratory 20 Rate Blood Pressure 125/76 O2 Sat by Pulse 97 Oximetry Medical Decision Making - Medical Decision Making 70-year-old female complaining of nausea and minimal diarrhea starting early this morning. Labs, 1 L normal saline, 4 mg of Zofran, KUB ordered. Labs unremarkable. Patient mildly dehydrated with 1+ ketones in the urine. Patient is in stable condition upon reevaluation. Patient states that she wants to go home as she is feeling better. Case discussed with Dr. Roblero, patient can discharge home with follow-up primary care. - Lab Data Result diagrams: 12/02/20 19:56 12/02/20 19:56 Lab Results 12/02/20 12/02/20 12/02/20 Range/Units 19:56 19:56 19:56 WBC 7.9 (3.8-10.6) k/uL RBC 4.93 (3.80-5.40) m/uL Hgb 13.3 (11.4-16.0) gm/dL Hct 39.4 (34.0-46.0) % MCV 79.9 L (80.0-100.0) fL MCH 26.9 (25.0-35.0) pg MCHC 33.7 (31.0-37.0) g/dL RDW 14.1 (11.5-15.5) % Plt Count 326 (150-450) k/uL MPV 6.8 Neutrophils % 85 % Lymphocytes % 10 % Monocytes % 3 % Eosinophils % 1 % Basophils % 0 % Neutrophils # 6.7 (1.3-7.7) k/uL Lymphocytes # 0.8 L (1.0-4.8) k/uL Monocytes # 0.3 (0-1.0) k/uL Eosinophils # 0.0 (0-0.7) k/uL Basophils # 0.0 (0-0.2) k/uL Sodium 136 L (137-145) mmol/L Potassium 4.1 (3.5-5.1) mmol/L Chloride 99 (98-107) mmol/L Carbon Dioxide 28 (22-30) mmol/L Anion Gap 9 mmol/L BUN 16 (7-17) mg/dL Creatinine 1.17 H (0.52-1.04) mg/dL Est GFR (CKD-EPI)AfAm 55 (>60 ml/min/1.73 sqM) Est GFR (CKD-EPI)NonAf 48 (>60 ml/min/1.73 sqM) Glucose 111 H (74-99) mg/dL Calcium 9.9 (8.4-10.2) mg/dL Total Bilirubin 0.5 (0.2-1.3) mg/dL AST 28 (14-36) U/L ALT 19 (4-34) U/L Alkaline Phosphatase 87 (38-126) U/L Total Protein 7.1 (6.3-8.2) g/dL Albumin 4.2 (3.5-5.0) g/dL Amylase 35 (30-110) U/L Lipase 30 (23-300) U/L Urine Color Yellow Urine Appearance Clear (Clear) Urine pH 6.5 (5.0-8.0) Ur Specific [place] 1.012 (1.001-1.035) Urine Protein Negative (Negative) Urine Glucose (UA) Negative (Negative) Urine Ketones 1+ H (Negative) Urine Blood Negative (Negative) Urine Nitrite Negative (Negative) Urine Bilirubin Negative (Negative) Urine Urobilinogen <2.0 (<2.0) mg/dL Ur Leukocyte Esterase Negative (Negative) - Radiology Data Radiology results: report reviewed, image reviewed KUB: Lung bases show no significant abnormality. There is degenerative disc changes in the spinal coverage. No evident bowel structure pneumoperitoneum. No pathologic calcification. Probable phlebolith with some within the pelvis. No acute abnormality. Disposition Clinical Impression: Dehydration, Nausea Disposition: HOME SELF-CARE Condition: Stable Instructions (If sedation given, give patient instructions): Acute Nausea and Vomiting (ED) Additional Instructions: Please return to the Emergency Department if symptoms worsen or any other concerns. Follow-up with primary care as needed. Take Zofran as prescribed. Increase oral fluids. Continue take at home medications as prescribed. Is patient prescribed a controlled substance at d/c from ED?: No Referrals: Arash Willett MD [Primary Care Provider] - 1-2 days Time of Disposition: 21:07
[2020-12-02 20:12] LABS: Basophils % (A) 0 %; Eosinophils % (A) 1 %; HCT 39.4 % (34.0-46.0); HGB 13.3 gm/dL (11.4-16.0); Lymphocytes # (A) 0.8 k/uL (1.0-4.8); Lymphocytes % (A) 10 %; MCH 26.9 pg (25.0-35.0); MCHC 33.7 g/dL (31.0-37.0); MCV 79.9 fL (80.0-100.0); Mean Platelet Volume 6.8; Monocytes # (A) 0.3 k/uL (0-1.0); Monocytes % (A) 3 %; Neutrophils # (A) 6.7 k/uL (1.3-7.7); Neutrophils % (A) 85 %; Platelet Count 326 k/uL (150-450); RBC 4.93 m/uL (3.80-5.40); RDW 14.1 % (11.5-15.5); WBC 7.9 k/uL (3.8-10.6)
--- NOTE | 2020-12-02 20:12 | XR ---
KUB HISTORY: Nausea vomiting diarrhea Frontal KUB submitted on 2 images and correlated prior CT scan 10/12/2020 There are overlying artifacts. Lung bases show no significant abnormality. There is degenerative disc change with spinal curvature. No evident bowel obstruction or pneumoperitoneum. No pathologic calcification. Probable phleboliths w ithin the pelvis. IMPRESSION: No acute abnormality.
[2020-12-02 20:27] LABS: Albumin 4.2 g/dL (3.5-5.0); Calcium 9.9 mg/dL (8.4-10.2); Potassium 4.1 mmol/L (3.5-5.1); Total Bilirubin 0.5 mg/dL (0.2-1.3); Total Protein 7.1 g/dL (6.3-8.2)
[2020-12-02 20:44] LABS: Appearance,Urine Clear (Clear); Bilirubin,Urine Negative (Negative); Blood,Urine Negative (Negative); Color,Urine Yellow; Glucose,Urine (UA) Negative (Negative); Ketones,Urine 1+ (Negative); Leukocyte Esterase,Urine Negative (Negative); Nitrite,Urine Negative (Negative); PH, Urine 6.5 (5.0-8.0); Protein,Urine Negative (Negative); Specific Gravity,Urine 1.012 (1.001-1.035); Urobilinogen,Urine <2.0 mg/dL (<2.0)
[2020-12-02 21:21] VITALS: BP 148/74; PULSE 74; RESP 16; TEMP 98.4
== END 2020-12-02 21:20 | disposition home or self-care (01) ==
LOC: EC 19:28
DX: E86.0 Dehydration (principal); R11.0 Nausea; R19.7 Diarrhea, unspecified; I12.9 Hypertensive chronic kidney disease with stage 1 through stage 4 chronic kidney disease, or unspecified chronic kidney disease; N18.32 Chronic kidney disease, stage 3b; K58.9 Irritable bowel syndrome, unspecified; G47.30 Sleep apnea, unspecified; M19.90 Unspecified osteoarthritis, unspecified site; M79.7 Fibromyalgia; Z87.891 Personal history of nicotine dependence; Z79.1 Long term (current) use of non-steroidal anti-inflammatories (NSAID); Z79.899 Other long term (current) drug therapy; Z88.0 Allergy status to penicillin; Z88.1 Allergy status to other antibiotic agents; Z88.6 Allergy status to analgesic agent; Z88.8 Allergy status to other drugs, medicaments and biological substances; Z96.653 Presence of artificial knee joint, bilateral
CPT/HCPCS: 36415; 80053; 82150; 83690; 85025; 81003; 74018; 99284; 96374; 96361; J2405

== ENCOUNTER → 2021-02-02 | Outpatient (CLI) | payer BC, MEDICARE ==
[2021-02-02 09:51] LABS: Appearance,Urine Cloudy (Clear); Bacteria,Urine Rare /hpf; Bilirubin,Urine Negative (Negative); Blood,Urine Negative (Negative); Color,Urine Yellow; Glucose,Urine (UA) Negative (Negative); Ketones,Urine Negative (Negative); Leukocyte Esterase,Urine Small (Negative); Mucus,Urine Rare /hpf; Nitrite,Urine Negative (Negative); PH, Urine 5.5 (5.0-8.0); Protein,Urine Negative (Negative); RBC,Urine 1 /hpf (0-5); Specific Gravity,Urine 1.022 (1.001-1.035); Squamous Epithelial Cell,Urine 11 /hpf (0-4); Urobilinogen,Urine <2.0 mg/dL (<2.0); WBC,Urine 4 /hpf (0-5)
[2021-02-02 14:50] LABS: Basophils # (A) 0.04 X 10*3/uL (0.00-0.10); Basophils % (A) 0.8 %; Eosinophils # (A) 0.15 X 10*3/uL (0.04-0.35); Eosinophils % (A) 2.8 %; HCT 39.5 % (37.2-46.3); HGB 12.1 g/dL (12.0-15.0); Lymphocytes # (A) 1.61 X 10*3/uL (0.90-5.00); Lymphocytes % (A) 30.4 %; MCH 25.7 pg (27.0-32.0); MCHC 30.6 g/dL (32.0-37.0); MCV 83.9 fL (80.0-97.0); Mean Platelet Volume 9.5 fL (9.5-12.2); Monocytes # (A) 0.37 X 10*3/uL (0.20-1.00); Neutrophils # (A) 3.11 X 10*3/uL (1.80-7.70); Neutrophils % (A) 58.8 %; Platelet Count 281 X 10*3/uL (140-440); RBC 4.71 X 10*6/uL (4.10-5.20); RDW 15.2 % (11.5-14.5); WBC 5.29 X 10*3/uL (4.50-10.00)
[2021-02-02 15:57] LABS: Albumin 4.1 g/dL (3.80-4.90); Albumin/Globulin Ratio 1.64 (1.60-3.17); Anion Gap 7.4 mmol/L (4.00-12.00); Calcium 9.3 mg/dL (8.7-10.3); Carbon Dioxide 29.6 mmol/L (21.6-31.8); Chol/HDL Ratio 3.55; Globulin 2.5 g/dL (1.6-3.3); Non-African American GFR(CKD) 57.8 (60.0-200.0); Potassium 4.2 mmol/L (3.5-5.5); Total Bilirubin 0.4 mg/dL (0.3-1.2); Total Protein 6.6 g/dL (6.2-8.2)
== END | disposition home or self-care (01) ==
LOC: LABWHC1 08:06
PROVIDERS: ATTEND Family Medicine
DX: Z00.00 Encounter for general adult medical examination without abnormal findings (principal); I12.9 Hypertensive chronic kidney disease with stage 1 through stage 4 chronic kidney disease, or unspecified chronic kidney disease; N18.30 Chronic kidney disease, stage 3 unspecified; G47.33 Obstructive sleep apnea (adult) (pediatric); M19.90 Unspecified osteoarthritis, unspecified site; M79.7 Fibromyalgia; R53.83 Other fatigue
CPT/HCPCS: 36415; 80053; 80061; 81001; 84443; 85025

== ENCOUNTER → 2021-03-02 | Outpatient (CLI) | payer BC, MEDICARE ==
--- NOTE | 2021-03-02 19:26 | XR ---
EXAMINATION TYPE: XR foot complete bilateral, 3 views DATE OF EXAM: 03/02/2021 Comparison: None Clinical History: 70-year-old female M79.604, M79.605,M79.671, M79.672 Findings: Left foot: Moderate to severe degenerative change navicular medial cuneiform joint as well as the second and thi rd TMT joints. Mild degenerative change first MTP joint. Prominent dorsal spurring is present of the mid foot. Small plantar heel spur. No acute fracture, subluxation, or dislocation. Right foot: Moderate to severe degenerative change second and third TMT joints. Incidental bipartite tibial sesam oid. Moderate degenerative change navicular medial cuneiform joint. Mild degenerative change first MT P joint. Small plantar heel spur. Prominent dorsal mid foot degenerative spurring. Impression: 1. Moderate to advanced degenerative change at both the second and third TMT joints as well as the na vicular medial cuneiform joint though left greater than right. 2. Mild bilateral first MTP joint OA and small bilateral plantar heel spurs.
== END | disposition home or self-care (01) ==
LOC: RADXRMAIN 13:16
PROVIDERS: ATTEND Family Medicine
DX: M19.071 Primary osteoarthritis, right ankle and foot (principal); M19.072 Primary osteoarthritis, left ankle and foot; M77.31 Calcaneal spur, right foot; M77.32 Calcaneal spur, left foot

== ENCOUNTER → 2021-10-28 | Outpatient (CLI) | payer BC, MEDICARE ==
--- NOTE | 2021-10-29 14:47 | MM ---
Reason for exam: screening (asymptomatic). Last mammogram was performed 2 years and 4 months ago. History: Patient is postmenopausal. Benign left mammotome panel of the left breast, March 29, 2013. Benign excisional biopsy of the right breast, 2002. Benign excisional biopsy of the left breast, 1970. Took hormonal contraceptives for 10 years beginning at age 22. Physical Findings: A clinical breast exam by your physician is recommended on an annual basis and results should be correlated with mammographic findings. MG 3D Screening Mammo W/Cad Bilateral CC and MLO view(s) were taken. Prior study comparison: June 28, 2019, bilateral MG 3d work up w/cad SIL[facility]. June 18, 2019, bilateral MG 3d screening mammo w/cad. There are scattered fibroglandular densities. Finding: There is a 10 mm equal density (isodense) mass in the upper outer quadrant of the left breast. Previous mammotome biopsy in the left breast. There is a chronic nodularity in the right breast. ASSESSMENT: Incomplete: need additional imaging evaluation, BI-RAD 0 RECOMMENDATION: Special view mammogram of the left breast. If lesion persists on supplemental views, image directed ultrasound is recommended. [facility] will attempt to contact patient to return for supplemental views and ultrasound if indicated.
== END | disposition home or self-care (01) ==
LOC: RADMAMWWP 11:00
PROVIDERS: ATTEND Obstetrics & Gynecology
DX: Z12.31 Encounter for screening mammogram for malignant neoplasm of breast (principal); Z78.0 Asymptomatic menopausal state
CPT/HCPCS: 77063; 77067

== ENCOUNTER → 2021-11-02 | Outpatient (CLI) | payer BC, MEDICARE ==
--- NOTE | 2021-11-03 10:03 | USB ---
Reason for Exam: Additional evaluation requested from prior study. Clinical finding. Last screening mammogram was performed less than 1 month ago. Patient History: Menarche at age 13. First Full-Term at age 22. Postmenopausal. Hormonal Contraceptives for 10 years from age 22 until age 50. 2002, Benign Excisional Biopsy on the right side. 1970, Benign Excisional Biopsy on the left side. 03/29/2013, Benign Core Biopsy on the left side. Risk Values: [place] 5 year model risk: 2.5%. NCI Lifetime model risk: 7.7%. Film Views: 3D Left spot compression CC views were taken. 3D Left spot compression MLO views were taken. 3D Left LM views were taken. Prior Study Comparison: 06/18/2019 Bilateral Screening Mammogram, [facility]. 06/28/2019 Bilateral Diagnostic Mammogram, [facility]. 10/28/2021 Bilateral Screening Mammogram, [facility]. Tissue Density: Left: There are scattered fibroglandular densities. Findings: Analyzed By CAD. Chronic nodularity in the left posterior lateral breast. Persistent 8mm isodense circumscribed nodule approximately 3 o'clock middle to posterior depth. Ultrasound recommended. These results were verbally communicated with the patient at the time of exam. Findings: Left limited breast ultrasound including focal area of concern, retroareolar and axilla demonstrates a 7 x 3 x 5mm oval, cystic lesion at 3 o'clock, 8cm from the nipple. Likely mammographic correlate. 6 month follow up mammogram recommended. Scanned left 2-4 o'clock. These results were verbally communicated with the patient at the time of exam. Overall Assessment: Probably benign, BI-RAD 3 Assessment: MG 3D work up w/cad LT - Left: Incomplete: need additional imaging evaluation, BI-RAD 0. US breast workup limited LT - Left: Probably benign, BI-RAD 3. Management: Diagnostic Mammogram of the left breast in 6 months.
== END | disposition home or self-care (01) ==
LOC: RADMAMWWP 10:44
PROVIDERS: ATTEND Obstetrics & Gynecology
DX: R92.8 Other abnormal and inconclusive findings on diagnostic imaging of breast (principal); N60.02 Solitary cyst of left breast; Z78.0 Asymptomatic menopausal state
CPT/HCPCS: 77061; 77065

== ENCOUNTER → 2021-12-06 | Outpatient (CLI) | payer BC, MEDICARE ==
--- NOTE | 2021-12-06 20:47 | XR ---
EXAMINATION TYPE: XR cervical spine limited DATE OF EXAM: 12/06/2021 COMPARISON: None HISTORY: Osteoarthritis pain TECHNIQUE: 4 view cervical spine FINDINGS: Prevertebral space is normal. Posterior spinal lamellar line is intact. Multilevel vertebra l body endplate spurring is present anteriorly at C3-C6. Mild posterior endplate spurring may be pres ent C5-6. Odontoid and submental vertex view appears unremarkable. There is loss of disc height throu ghout the cervical spine. Vertebral body alignment appears normal. IMPRESSION: 1. Multilevel loss of disc height throughout the cervical spine with anterior endplate spurring. Lazaro e minimal posterior endplate spurring may be present C5-6. MRI could be performed if additional evalu ation would be of benefit.
== END | disposition home or self-care (01) ==
LOC: RADXRMAIN 10:07
PROVIDERS: ATTEND Family Medicine
DX: M50.321 Other cervical disc degeneration at C4-C5 level (principal)
CPT/HCPCS: 72040

== ENCOUNTER → 2021-12-23 | Outpatient (CLI) | payer BC, MEDICARE ==
[2021-12-23 08:39] VITALS: BP 131/84; PULSE 72; RESP 18; TEMP 98.4
--- NOTE | 2021-12-23 08:43 | P.PAINPG ---
PQRS Measure Charge Sheet Comment: HISTORY OF PRESENT ILLNESS: 71 yr old female as a referral from Dr. Quiñonez presents today with severe and chronic cervical pain secondary to DDD, spondylosis and facet arthropathy for evaluation Pt states her pain level is 6/10 in intensity, dull & achy and constant in the lower aspect of her cervical spine with radiation of pian towards the BL shoulders. States that clothing tags hurt her sometimes. Pain is provoked with standing/sitting for periods of 15 min or more. Pain is relieved with medications (Mobic), topicals, heat, PT for 4-6 weeks in 2019, hot showers, repositioning and rest. PMH: HTN, OA, Sleep Apnea/CPAP/BIPAP, IBS, Scoliosis, Fibromyalgia (1988), CRF, OP PSH: BL TKA, L CTR, BL Cataract Resection, BL eye surgery x 4, Appendectomy, BL Breast Biopsy, L RCT Repair, Colonoscopy SH: Former tobacco user, No ETOH abuse, No illicit drug use. FH: Father- CA. Mother- Lung CA. Brother- PE/Pancreatic CA. Daughter(s)- DVT/ May Dupont Syndrome/ MS All: See list Meds: See list REVIEW OF ORGAN SYSTEMS: CONSTITUTIONAL: No fevers or chills. No recent weight loss. NEUROLOGICAL: + numbness and tingling along the distal extremities. No seizure disorders or headaches. MUSCULOSKELETAL: + pain PSYCHIATRIC: Denies current depression or suicidal thoughts. Physical Examinations : Constitutional : Cooperative , not in acute distress . Neurologic : Cranial nerve II to XII intact. No focal neurological deficits. Psychiatric : alert & oriented x 3. Matching mood & appropriate affect. Judgment & insight intact. Musculoskeletal : Cervical Spine Motor strength in the deltoid and biceps: Normal right side. Normal Left side Motor strength biceps and the wrist extensors: Normal right side . Normal left side Motor strength in the triceps muscle: Normal right side. Normal left side Deep tendon reflexes: Normal at the biceps. Normal at Brachioradialis. Normal at triceps Vertebral body tenderness to deep palpation over C5, C6 Cervical facet loading test: positive bilaterally Spurling test: positive bilaterally Neck distraction test: positive bilaterally Shahida sign: positive bilaterally Lumbar spine Motor strength lower extremities ,thigh and legs 5/5 Right side , 5/5 Left side Deep tendon reflexes : Normal Knee Jerk. Normal Ankle Jerk Vertebral body tenderness over Lumbar facet Loading Test: positive Right / positive Left Range of motion of the lumbar spine Flexion 30 degrees, extension 10 degrees Straight Leg Raise test: Left/ Right positive at degree Shawn test: positive right / positive left. Severe tenderness over the Sacroiliac joint on the Right / Left sides Gaenslen test: positive bilaterally Seated flexion test: positive bilaterally. Sacral spine : Severe tenderness over the Sacroiliac joint: right side / left side Range of motion: Flexion of the lumbar spine <60 degrees Range of motion: Extension of the lumbar spine <20 degrees Gaenslen's Test positive Randy's Test positive Shawn test: positive right side / left side Thigh Thrust Test Sacral Thrust Test Imaging: Cervical x ray from 12/06/21 reviewed Assessment/ Plan : Cervical DDD Need cervical MRI from [facility]. Pt may return to our office within 2 weeks for a re evaluation. Need medical clearance from nephrology. Risks, benefits of procedure discussed and patient verbalized understanding. Denies aspirin or anti- coagulant use or medical history of diabetes. Protocol for discontinuation/ continuation of medications man procedure discussed. All questions answered. I have spent greater than 30 minutes on patient care today. Dr Shanks was available by phone for the evaluation of this patient. The time was used to review the medical records including relevant urine studies and Prescription history (MAPs), review of the available imaging, evaluation and examination of the patient, coordination of care with the medical staff and if applicable referring physicians, as well as creation of the medical record PQRS Narrative: Smoking Status Former smoker Home Medications: Ambulatory Orders Calcium Carbonate/Vitamin D3 [Caltrate 600 Plus D3 20 Mcg (800 Iu)] 1 tab PO DAILY 07/20/16 Cholecalciferol [Vitamin D3] 5,000 unit PO DAILY 07/20/16 Estazolam 1 mg PO HS 07/20/16 Magnesium Gluconate [Magonate] 500 mg PO DAILY 07/20/16 Diphenoxylate HCl/Atropine [Lomotil 2.5-0.025 mg Tablet] 1 tab PO QID PRN 03/01/19 EPINEPHrine [Epipen 2-[place]] 0.3 mg IM ONCE PRN 03/01/19 Gabapentin [Neurontin] 300 mg PO BID@0800,1400 03/01/19 Gabapentin [Neurontin] 600 mg PO HS 03/01/19 Dicyclomine [Bentyl] 20 mg PO QID 02/19/20 Losartan Potassium [Cozaar] 100 mg PO DAILY 02/19/20 Meloxicam [Mobic] 15 mg PO DAILY 02/19/20 hydroCHLOROthiazide [Hydrodiuril] 12.5 mg PO DAILY 02/19/20 Hydrocodone/Acetaminophen [[place] 5-325] 1 tab PO Q6HR PRN 3 Days #6 tab 02/21/20 Ondansetron Odt [Zofran Odt] 4 mg PO Q8HR PRN 5 Days #15 tab 12/02/20 Controlled Substance Measures - Controlled Substance Measures Is patient prescribed a controlled substance at discharge?: No
== END ==
LOC: PNWHC3 08:01
PROVIDERS: ATTEND Specialist
DX: M50.20 Other cervical disc displacement, unspecified cervical region (principal); M48.061 Spinal stenosis, lumbar region without neurogenic claudication; M19.90 Unspecified osteoarthritis, unspecified site; Z88.0 Allergy status to penicillin; Z88.6 Allergy status to analgesic agent; Z91.030 Bee allergy status; Z91.041 Radiographic dye allergy status; Z88.1 Allergy status to other antibiotic agents; Z87.891 Personal history of nicotine dependence; Z88.8 Allergy status to other drugs, medicaments and biological substances
CPT/HCPCS: 99211

== ENCOUNTER → 2022-01-06 | Outpatient (CLI) | payer BC, MEDICARE ==
[2022-01-06 10:05] VITALS: BP 147/85; PULSE 74; RESP 18; TEMP 98.6
--- NOTE | 2022-01-06 10:57 | P.PAINPG ---
PQRS Measure Charge Sheet Comment: HISTORY OF PRESENT ILLNESS: A 71 yr old female as a referral from Dr Lenz with a history of severe and chronic neck pain secondary to DDD, spinal stenosis, neural foraminal stenoses and facet arthropathy presents today for cervical pain. Pain level is 6/10 in intensity but escalates as high as 10/10, sharp burning ache in the mid aspects of her cervical spine w radiation of pain towards head. Pain is provoked by flexion. Pain is alleviated with PT in 2019, topicals, chiropractic treatments 5 yrs ago without relief, medications (Tylenol Arthritis), repositioning and rest. PMH: CKD III, Fibrmyalgia, DENEEN, HTN, Scoliosis, Stress Incontinence PSH: Breast biopsy, cataract surgery, cholecystectomy, colonoscopy, L knee surgery, R knee surgery, Mohs surgery, R Shoulder Arthroscopy, Umbilical Hernia Repair, Carpal Tunnel Release SH: Former tobacco user, No ETOH abuse, No illicit drug use FH: Brother- NIDDM, Pancreatic CA. Mother- Raynauds, OA, COPD, Lung CA, NIDDM, Goiter. Son- NIDDM. Daughter- aFib. All: See list Meds: See list REVIEW OF ORGAN SYSTEMS: CONSTITUTIONAL: No fevers or chills. No recent weight loss. NEUROLOGICAL: + numbness and tingling along the distal extremities. No seizure disorders or headaches. MUSCULOSKELETAL: + pain PSYCHIATRIC: Denies current depression or suicidal thoughts. Physical Examinations : Constitutional : Cooperative , not in acute distress . Neurologic : Cranial nerve II to XII intact. No focal neurological deficits. Psychiatric : alert & oriented x 3. Matching mood & appropriate affect. Judgment & insight intact. Musculoskeletal : Cervical Spine Motor strength in the deltoid and biceps: Normal right side. Normal Left side Motor strength biceps and the wrist extensors: Normal right side . Normal left side Motor strength in the triceps muscle: Normal right side. Normal left side Deep tendon reflexes: Normal at the biceps. Normal at Brachioradialis. Normal at triceps Vertebral body tenderness to deep palpation over C4, C5 Cervical facet loading test: positive bilaterally Spurling test: positive bilaterally Neck distraction test: positive bilaterally Shahida sign: positive bilaterally Lumbar spine Motor strength lower extremities ,thigh and legs 5/5 Right side , 5/5 Left side Deep tendon reflexes : Normal Knee Jerk. Normal Ankle Jerk Vertebral body tenderness over Lumbar facet Loading Test: positive Right / positive Left Range of motion of the lumbar spine Flexion 30 degrees, extension 10 degrees Straight Leg Raise test: Left/ Right positive at degree Shawn test: positive right / positive left. Severe tenderness over the Sacroiliac joint on the Right / Left sides Gaenslen test: positive bilaterally Seated flexion test: positive bilaterally. Sacral spine : Severe tenderness over the Sacroiliac joint: right side / left side Range of motion: Flexion of the lumbar spine <60 degrees Range of motion: Extension of the lumbar spine <20 degrees Gaenslen's Test positive Randy's Test positive Shawn test: positive right side / l eft side Thigh Thrust Test Sacral Thrust Test Imaging: X-ray of the cervical spine from 12/06/21 reviewed MRI without contrast of the cervical spine from 07/15/20 reviewed Assessment/ Plan : Cervical DDD, cervical stenosis Recommendation of CATY C4-C5. May need a series of injections, up to 3 within a 6 mo period, for optimal pain relief. Need nephrology clearance Re: GFR 57 Risks, benefits of procedure discussed and patient verbalized understanding. Denies aspirin or anti- coagulant use or medical history of diabetes. Protocol for discontinuation/ continuation of medications man procedure discussed. All questions answered. I have spent greater than 30 minutes on patient care today. Dr Shanks was available by phone for the evaluation of this patient. The time was used to review the medical records including relevant urine studies and Prescription history (MAPs), review of the available imaging, evaluation and examination of the patient, coordination of care with the medical staff and if applicable referring physicians, as well as creation of the medical record - Pain Location Neck Non-Pharmacological Interventions: Chiropractic Treatment, Physical Therapy, Position/Reposition Pharmacological Interventions: PRN Medication, Topical Medication PQRS Narrative: Smoking Status Former smoker Hx Alcohol Use (MH) No Home Medications: Ambulatory Orders Calcium Carbonate/Vitamin D3 [Caltrate 600 Plus D3 20 Mcg (800 Iu)] 1 tab PO DAILY 07/20/16 Cholecalciferol [Vitamin D3] 5,000 unit PO DAILY 07/20/16 Estazolam 1 mg PO HS 07/20/16 Magnesium Gluconate [Magonate] 500 mg PO DAILY 07/20/16 Diphenoxylate HCl/Atropine [Lomotil 2.5-0.025 mg Tablet] 1 tab PO QID PRN 03/01/19 EPINEPHrine [Epipen 2-Chano] 0.3 mg IM ONCE PRN 03/01/19 Gabapentin [Neurontin] 300 mg PO BID@0800,1400 03/01/19 Gabapentin [Neurontin] 600 mg PO HS 03/01/19 Dicyclomine [Bentyl] 20 mg PO QID 02/19/20 Losartan Potassium [Cozaar] 100 mg PO DAILY 02/19/20 hydroCHLOROthiazide [Hydrodiuril] 12.5 mg PO DAILY 02/19/20 Hydrocodone/Acetaminophen [[place] 5-325] 1 tab PO Q6HR PRN 3 Days #6 tab 02/21/20 Ondansetron Odt [Zofran Odt] 4 mg PO Q8HR PRN 5 Days #15 tab 12/02/20 Controlled Substance Measures - Controlled Substance Measures Is patient prescribed a controlled substance at discharge?: No
== END ==
LOC: PNWHC3 09:12
PROVIDERS: ATTEND Specialist
DX: M50.30 Other cervical disc degeneration, unspecified cervical region (principal); M48.02 Spinal stenosis, cervical region; Z87.891 Personal history of nicotine dependence; I12.9 Hypertensive chronic kidney disease with stage 1 through stage 4 chronic kidney disease, or unspecified chronic kidney disease; N18.30 Chronic kidney disease, stage 3 unspecified; M41.9 Scoliosis, unspecified; Z91.030 Bee allergy status; Z91.041 Radiographic dye allergy status; Z88.0 Allergy status to penicillin; Z88.1 Allergy status to other antibiotic agents; Z88.6 Allergy status to analgesic agent; Z88.8 Allergy status to other drugs, medicaments and biological substances
CPT/HCPCS: 99211

== ENCOUNTER → 2022-10-08 | Outpatient (CLI) | payer BC, MEDICARE ==
[2022-10-09 00:14] LABS: Basophils # (A) 0.02 X 10*3/uL (0.00-0.10); Basophils % (A) 0.4 %; Eosinophils # (A) 0.15 X 10*3/uL (0.04-0.35); Eosinophils % (A) 2.9 %; HCT 39.6 % (37.2-46.3); HGB 11.8 g/dL (12.0-15.0); Immature Grans, Automated 0.2 %; Lymphocytes # (A) 1.37 X 10*3/uL (0.90-5.00); Lymphocytes % (A) 26.1 %; MCH 26.2 pg (27.0-32.0); MCHC 29.8 g/dL (32.0-37.0); MCV 87.8 fL (80.0-97.0); Mean Platelet Volume 9.2 fL (9.5-12.2); Monocytes # (A) 0.34 X 10*3/uL (0.20-1.00); Monocytes % (A) 6.5 %; NRBC Per 100 WBC 0 /100 WBCS (0.0-0.0); Neutrophils # (A) 3.36 X 10*3/uL (1.80-7.70); Neutrophils % (A) 63.9 %; Platelet Count 263 X 10*3/uL (140-440); RBC 4.51 X 10*6/uL (4.10-5.20); RDW 14.6 % (11.5-14.5); WBC 5.25 X 10*3/uL (4.50-10.00)
[2022-10-09 09:00] LABS: ALT 15 U/L (8-44); AST 20 U/L (13-35); African American GFR (CKD) 66.1 (60.0-200.0); Albumin/Globulin Ratio 1.66 (1.60-3.17); Alkaline Phosphatase 78 U/L (41-126); Calcium 9.4 mg/dL (8.7-10.3); Carbon Dioxide 26.3 mmol/L (20.0-27.5); Chloride 104 mmol/L (96-109); Globulin 2.4 g/dL (1.6-3.3); Glucose 95 mg/dL (70-110); LDL Cholesterol,Calculated 159.2 mg/dL (0.0-131.0); Potassium 4.4 mmol/L (3.5-5.5); Sodium 143 mmol/L (135-145); Total Protein 6.4 g/dL (6.2-8.2)
== END | disposition home or self-care (01) ==
LOC: LABWHC1 09:37
PROVIDERS: ATTEND Internal Medicine
DX: I10 Essential (primary) hypertension (principal)
CPT/HCPCS: 36415; 80053; 80061; 84443; 85025

== ENCOUNTER → 2022-10-26 | Outpatient (CLI) | payer BC, MEDICARE ==
--- NOTE | 2022-10-26 10:43 | MR ---
EXAMINATION TYPE: MR lumbar spine wo con DATE OF EXAM: 10/26/2022 COMPARISON: NONE HISTORY: Back pain TECHNIQUE: T1 and T2 axial and sagittal images of the lumbar spine are submitted. FINDINGS: There is no abnormal signal seen within the visualized spinal cord or paraspinal soft tissu es. There is a vertebral body hemangioma of L4, L3, and T8. There is a scoliotic curvature of the spi ne with severe degenerative disc disease at all levels anterior hypertrophic spurring noted. 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 At L1-2 there is severe degenerative disc disease with facet arthropathy. There is disc bulging. Ther e is moderate left-sided foraminal At L2-3 there is severe degenerative disc disease and facet arthropathy and there is central disc bul ging. Moderate left-sided foraminal protrusion. At L3-4 there is severe degenerative disc disease with discogenic changes and advanced facet arthropa thy. No canal stenosis or discrete herniation. Mild bilateral foraminal At L4-5 there is grade 1 anterolisthesis with severe degenerative disc disease. There is advanced fac et arthropathy. No discrete herniation. There is mild bilateral foraminal At L5-S1 there is degenerative disc disease and facet arthropathy with no discrete herniation or andre l stenosis. Neural foramina remain patent. IMPRESSION: 1. Scoliotic curvature with severe degenerative disc disease at all levels with multilevel mild-to-mo derate foraminal enlargement as discussed above. No canal stenosis or discrete herniation
== END | disposition home or self-care (01) ==
LOC: RADMRIMAIN 09:26
PROVIDERS: ATTEND Nurse Practitioner Family
DX: M47.26 Other spondylosis with radiculopathy, lumbar region (principal); M51.16 Intervertebral disc disorders with radiculopathy, lumbar region; M99.73 Connective tissue and disc stenosis of intervertebral foramina of lumbar region
CPT/HCPCS: 72148

== ENCOUNTER → 2022-10-28 | Outpatient (CLI) | payer BC, MEDICARE ==
--- NOTE | 2022-10-28 12:40 | US ---
EXAMINATION TYPE: US kidneys/renal and bladder DATE OF EXAM: 10/28/2022 COMPARISON: CT 2020 CLINICAL INDICATION: Female, 72 years old with history of N18.31 CHRONIC KIDNEY DISEASE, STAGE 3A; EXAM MEASUREMENTS: Right Kidney: 8.9 x 4.3 x 4.1 cm Left Kidney: 9.1 x 4.1 x 4.0 cm Both grayscale and color Doppler ultrasound images of the kidney and urinary bladder were obtained. Right Kidney: No hydronephrosis or masses seen Left Kidney: No hydronephrosis or masses seen Bladder: wnl Bilateral Jets seen: yes There is no evidence for hydronephrosis at this point in time. No nephrolithiasis is seen. No denise s are identified. Cortical differentiation is maintained. Bilateral cortical thinning demonstrated. The urinary bladder is anechoic. Bilateral ureteral jets are seen. The visualized portion of the eliz er is hyperechoic. IMPRESSION: 1. No hydronephrosis or nephrolithiasis. 2. Findings consistent with chronic medical renal disease. 3. Hepatic steatosis.
== END | disposition home or self-care (01) ==
LOC: RADUSWWP 11:52
PROVIDERS: ATTEND Internal Medicine
DX: N18.31 Chronic kidney disease, stage 3a (principal); K76.0 Fatty (change of) liver, not elsewhere classified
CPT/HCPCS: 76770

== ENCOUNTER → 2022-12-21 | Outpatient (CLI) | payer BC, MEDICARE ==
--- NOTE | 2022-12-21 09:14 | MM ---
Reason for Exam: Follow-up at short interval from prior study. Last mammogram was performed 1 year(s) and 2 month(s) ago. Patient History: Menarche at age 13. First Full-Term at age 22. Postmenopausal. Hormonal Contraceptives for 10 years from age 22 until age 50. 2002, Benign Excisional Biopsy on the right side. 1970, Benign Excisional Biopsy on the left side. 03/29/2013, Benign Core Biopsy on the left side. Risk Values: Cleo 5 year model risk: 2.5%. NCI Lifetime model risk: 7.4%. Prior Study Comparison: 06/21/2002 Screening Mammogram, [facility]. 07/15/2002 Right Screening Mammogram, [facility]. 03/24/2003 Right Screening Mammogram, [facility]. 01/12/2005 Screening Mammogram, [facility]. 03/15/2013 Bilateral Diagnostic Ultrasound, [facility]. 10/03/2013 Left Diagnostic Mammogram, [facility]. 03/25/2015 Bilateral Screening Mammogram, [facility]. 03/29/2016 Bilateral Screening Mammogram, [facility]. 06/18/2019 Bilateral Screening Mammogram, [facility]. 06/28/2019 Bilateral Diagnostic Mammogram, [facility]. 06/28/2019 Bilateral Diagnostic Ultrasound, [facility]. 10/28/2021 Bilateral Screening Mammogram, [facility]. 11/02/2021 Left US breast workup limited LT, [facility]. 11/02/2021 Left MG 3D work up w/cad LT, [facility]. Tissue Density: The breast tissue is heterogeneously dense. This may lower the sensitivity of mammography. Findings: Analyzed By CAD. No evidence for mass or distortion. No suspicious calcifications. Overall Assessment: Benign, BI-RAD 2 Management: Screening Mammogram of both breasts in 1 year. . Results were given to the patient verbally at the time of exam. Patient should continue monthly self-breast exams. A clinical breast exam by your physician is recommended on an annual basis. This exam should not preclude additional follow-up of suspicious palpable abnormalities. Note on Cleo scores and lifetime risk: 1. A Cleo score greater than 3% is considered moderate risk. If this is the case, consider specialist referral to assess eligibility for a risk reducing agent. 2. If overall lifetime risk for the development of breast cancer is 20% or higher, the patient may qualify for future screening with alternating mammogram and breast MRI. Electronically signed and approved by: Rashid Perez M.D. Radiologis
--- NOTE | 2022-12-21 09:21 | BD ---
EXAMINATION TYPE: Axial Bone Density DATE OF EXAM: 12/21/2022 CLINICAL HISTORY: 72 years old Female. ICD-10 CODE: Z78.0ASYMPTOMATIC MENOPAUSAL STATE Height: 58 Weight: 206.2 FRAX RISK QUESTIONS: Alcohol (3 or more units per day): no Family History (Parent hip fracture): no Glucocorticoids (More than 3mos): no History of Fracture in Adulthood: no Secondary Osteoporosis: 1. Type 1 Diabetes: no 2. Hyperthyroidism: no 3. Menopause before 45: no 4. Malnutrition: no 5. Chronic liver disease: no Rheumatoid Arthritis: no Current Tobacco Use: no RISK FACTORS HISTORY OF: Hip Fracture (Right/Left): no Spine Fracture: no History of Wrist Fracture: no Surgery to Spine/Hip(right/left)/Wrist (right/left): no Family History of Osteoporosis: mother Active: somewhat Diet low in dairy products/other sources of calcium: yes Postmenopausal woman: yes Take estrogen and/or progesterone medications: no Lost more than 2 inches in height since high school: no Frequent falls: no Poor Health: no Hyperparathyroidism: no Adrenal Insufficiency: no MEDICATIONS: Prednisone or other steroids: NO Thyroid Medications: no Osteoporosis Medications: no Additional Medications: BP Meds, Quetiapine, Vit D, Additional History: EXAM MEASUREMENTS: Bone mineral densitometry was performed using the [employer]. Bone mineral density as measured about the Lumbar spine is: ----- L1-L4(G/cm2): 1.603 T Score Values are as follows: ----- L1: 3.0 ----- L2: 3.7 ----- L3: 3.9 ----- L4: 3.1 ----- L1-L4: 3.5 Z Score Values are as follows: ----- L1: 3.8 ----- L2: 4.4 ----- L3: 4.7 ----- L4: 3.8 ----- L1-L4: 4.2 Bone mineral density has: increased 2.2 % since study of: 06/18/2019 Bone mineral density about the R hip (g/cm2): 1.014 Bone mineral density about the L hip (g/cm2): 1.012 T Score values are as follows: -----R Neck: -0.8 -----L Neck: -1.1 -----R Total: 0.1 -----L Total: 0.0 Z Score values are as follows: -----R Neck: 0.3 -----L Neck: 0.0 -----R Total: 0.8 -----L Total: 0.8 Bone mineral density has: decreased -5.1 % since study of: 06/18/2019 FRAX%s: The graph provided illustrates a 7.8% chance for a major osteoporotic fx and a 0.8% chance fo r the hips probability for fx in 10 years time. IMPRESSION: Normal (Values between +1 and -1 indicate normal bone mass). Consider repeating this study in 5 year s or sooner if there is some new clinical indication. NOTE: T-SCORE=SD OF THE YOUNG ADULT MEAN.
== END | disposition home or self-care (01) ==
LOC: RADBDWWP 08:11
PROVIDERS: ATTEND Internal Medicine
DX: Z13.820 Encounter for screening for osteoporosis (principal); R92.8 Other abnormal and inconclusive findings on diagnostic imaging of breast; Z78.0 Asymptomatic menopausal state
CPT/HCPCS: 77062; 77066; 77080

== ENCOUNTER → 2023-06-21 | Outpatient (CLI) | payer BC, MEDICARE ==
--- NOTE | 2023-06-22 21:54 | XR ---
EXAMINATION TYPE: XR ribs bilat w pa chest xray DATE OF EXAM: 06/21/2023 COMPARISON: 01/09/2023 INDICATION: Rib pain TECHNIQUE: Single frontal view of the chest is obtained. FINDINGS: The heart size is normal. The pulmonary vasculature is normal. There is silhouetting left diaphragm. Small effusion and/or atelectasis at the left base may be prese nt. Right ribs are examined in 2 projections. No displaced fractures are evident. No pneumothorax is evid ent. Note is made of spondylosis within the thoracic spine. Left ribs are examined in 2 sections. No displaced rib fractures are evident. No pneumothorax is evid ent. IMPRESSION: 1. No acute osseous abnormality bilateral ribs. 2. Small left pleural effusion and/or atelectasis
--- NOTE | 2023-06-22 21:55 | XR ---
EXAMINATION TYPE: XR thoracic spine complete DATE OF EXAM: 06/21/2023 COMPARISON: None HISTORY: Back pain TECHNIQUE: 3 views thoracic spine FINDINGS: There are 12 thoracic type vertebral bodies. Pedicles are intact. There is diffuse loss of disc height throughout the thoracic spine. Spondylosis is present. Vertebral body heights are preserv ed. IMPRESSION: 1. Spondylosis and degenerative disc changes thoracic spine
== END | disposition home or self-care (01) ==
LOC: RADXRMAIN 14:01
PROVIDERS: ATTEND Internal Medicine
DX: M47.814 Spondylosis without myelopathy or radiculopathy, thoracic region (principal); M51.34 Other intervertebral disc degeneration, thoracic region; R07.81 Pleurodynia
CPT/HCPCS: 71111; 72072

== ENCOUNTER → 2023-08-08 | Outpatient (CLI) | payer MEDICARE | LOC: CPPFTMAIN 14:39 | PROVIDERS: ATTEND Internal Medicine | DX: J45.909 Unspecified asthma, uncomplicated (principal); Z91.030 Bee allergy status; Z91.041 Radiographic dye allergy status; Z88.0 Allergy status to penicillin; Z88.1 Allergy status to other antibiotic agents; Z88.8 Allergy status to other drugs, medicaments and biological substances; Z87.891 Personal history of nicotine dependence; Z79.899 Other long term (current) drug therapy | CPT/HCPCS: 94060; 94726; 94729 ==

== ENCOUNTER → 2023-12-26 | Outpatient (CLI) | payer MEDICARE ==
--- NOTE | 2024-01-03 21:54 | MM ---
Reason for Exam: Screening (asymptomatic). Last screening mammogram was performed 12 month(s) ago. Patient History: Menarche at age 13. First Full-Term at age 22. Postmenopausal. Hormonal Contraceptives for 10 years from age 22 until age 50. 2002, Benign Excisional Biopsy on the right side. 1970, Benign Excisional Biopsy on the left side. 03/29/2013, Benign Core Biopsy on the left side. Risk Values: Cleo 5 year model risk: 2.6%. NCI Lifetime model risk: 7.0%. Prior Study Comparison: 10/28/2021 Bilateral Screening Mammogram, [facility]. 11/02/2021 Left MG 3D work up w/cad LT, [facility]. 12/21/2022 Bilateral MG 3D diag mammo w/cad SILVIO, [facility]. Tissue Density: There are scattered areas of fibroglandular density. Findings: Analyzed By CAD. Microclip left breast from prior biopsy. Some centrally located punctate calcifications on the left are unchanged. There is no suspicious group of microcalcifications or new suspicious mass in either breast. Overall Assessment: Benign, BI-RAD 2 Management: Screening Mammogram of both breasts in 1 year. . Patient should continue monthly self-breast exams. A clinical breast exam by your physician is recommended on an annual basis. This exam should not preclude additional follow-up of suspicious palpable abnormalities. Note on Cleo scores and lifetime risk: 1. A Cleo score greater than 3% is considered moderate risk. If this is the case, consider specialist referral to assess eligibility for a risk reducing agent. 2. If overall lifetime risk for the development of breast cancer is 20% or higher, the patient may qualify for future screening with alternating mammogram and breast MRI. Electronically signed and approved by: Briseida House M.D. Radiologist
== END | disposition home or self-care (01) ==
LOC: RADMAMWWP 08:43
PROVIDERS: ATTEND Internal Medicine
DX: Z12.31 Encounter for screening mammogram for malignant neoplasm of breast (principal); Z78.0 Asymptomatic menopausal state; R92.323 Mammographic fibroglandular density, bilateral breasts
CPT/HCPCS: 77063; 77067

== ENCOUNTER → 2024-04-15 | Outpatient (CLI) | payer MEDICARE ==
[2024-04-15 15:44] LABS: Blood Urea Nitrogen 16.6 mg/dL (9.0-27.0); Carbon Dioxide 26.3 mmol/L (21.6-31.8); Chloride 105 mmol/L (96-109); Potassium 4.7 mmol/L (3.5-5.5); Sodium 141 mmol/L (135-145)
[2024-04-15 17:11] LABS: HCT 37.6 % (37.2-46.3); HGB 11.7 g/dL (12.0-15.0); MCHC 31.1 g/dL (32.0-37.0); MCV 86.8 FL (80.0-97.0); Mean Platelet Volume 9.8 FL (9.5-12.2); NRBC Per 100 WBC 0 X 10*3/uL (0.00-0.01); Platelet Count 247 X 10*3/uL (140-440); RBC 4.33 X 10*6/uL (4.10-5.20); RDW 13.9 % (11.5-14.5); WBC 4.88 X 10*3/uL (4.50-10.00)
== END | disposition home or self-care (01) ==
LOC: LABPAT 09:37
PROVIDERS: ATTEND Internal Medicine Cardiovascular Disease
CPT/HCPCS: 36415; 80051; 82565; 84520; 85027

== ENCOUNTER → 2024-04-19 | Day surgery (SDC) | payer MEDICARE ==
[2024-04-17 15:52] VITALS: BMI 41.8
[~2024-04-19] MED LIST changes: -ACETAMINOPHEN TAB 325 MG TAB PO SCH; -ACETAMINOPHEN TAB 500 MG TAB PO ONE; +ALPRAZolam 0.25 MG TAB PO PRN; +ALPRAZolam 0.5 MG TAB PO PRN; +ASPIRIN 325 MG TAB PO STA; +ATORVASTATIN 80 MG TAB PO STA; -BUPIVACAINE (PF) 0.25% 30 ML VIAL SQ ONE; -DEXAMETHASONE SOD PHOSPHATE 10 MG/ML 1 ML VIAL IV ONE; -GLYCOPYRROLATE 0.2 MG/ML 2 ML VIAL ONE; -HEPARIN SODIUM,PORCINE 5,000 UNIT/ML 1 ML VIAL SQ ONE; -HYDROcodone/APAP 5-325MG 1 EACH TAB ONE; -HYDROcodone/APAP 5-325MG 1 EACH TAB PO ONE; -HYDROmorphone 0.5 MG/0.5 ML SYRINGE IVP PRN; -IBUPROFEN 600 MG TAB PO SCH; -KETOROLAC 15 MG/ML 1 ML VIAL ONE; -LACTATED RINGERS 1,000 ML IV ONE; -LACTATED RINGERS 1,000 ML IV SCH; -LIDOCAINE 1% (10MG/ML) FOR IV START INTRADERMA PRN; -LIDOCAINE 1% INJ 10MG/ML (20 ML MDV) ONE; -MIDAZOLAM 2 MG/2 ML VIAL IV PRN; -MIDAZOLAM 2 MG/2 ML VIAL ONE; -NEOSTIGMINE 1 MG/ML 10 ML VIAL ONE; +NITROGLYCERIN SL TABS 0.4 MG TAB SUBLINGUAL PRN; -ONDANSETRON 4 MG/2 ML VIAL IVP ONE; -PHENYLEPHRINE-0.9% NACL SYG 1 MG/10 ML SYRINGE ONE; -PROPOFOL 10 MG/ML 20 ML VIAL IV ONE; -ROCURONIUM BROMIDE 10 MG/ML 5 ML VIAL IV ONE; +SODIUM CHLORIDE 0.9% 1,000 ML in EMPTY BAG 1 BAG IV SCH; -SUCCINYLCHOLINE CHLORIDE VIAL 200 MG/10 ML VIAL IV ONE; -fentaNYL (PF) 50 MCG/ML 2 ML AMP ONE
[2024-04-19] MEDS: IV FLUID CONTINUATION 1,000 ML IV ONE (10:04)
[2024-04-19] MEDS: HEPARIN SODIUM,PORCINE 10,000 UNIT in SODIUM CHLORIDE 0.9% 1,000 ML IRRIGATION PRN (10:10)
[2024-04-19] MEDS: HEPARIN SODIUM,PORCINE (1 ML) 2,500 UNIT in SODIUM CHLORIDE 0.9% 250 ML IRRIGATION PRN (10:10)
[2024-04-19] MEDS: MIDAZOLAM 2 MG/2 ML VIAL IVP ONE (10:15)
[2024-04-19] MEDS: fentaNYL (PF) 50 MCG/ML 2 ML AMP IVP ONE (10:15)
[2024-04-19] MEDS: LIDOCAINE 1% INJ 10MG/ML (20 ML MDV) SQ ONE (10:15)
[2024-04-19] MEDS: VERAPAMIL SYRINGE (5 MG/10 ML) INTRAARTER ONE (10:17)
[2024-04-19] MEDS: HEPARIN SODIUM 1,000 UN/ML (10ML VL) IV ONE (10:21)
[2024-04-19] MEDS: IOPAMIDOL-370 100ML BTL INJ ONE (10:27)
[2024-04-19 10:29] LABS: Basophils % (A) 0 %; Eosinophils % (A) 0 %; HCT 41.7 % (34.0-46.0); HGB 13.3 gm/dL (11.4-16.0); Lymphocytes # (A) 0.8 k/uL (1.0-4.8); Lymphocytes % (A) 6 %; MCH 27.5 pg (25.0-35.0); MCHC 31.9 g/dL (31.0-37.0); MCV 86.1 fL (80.0-100.0); Mean Platelet Volume 7.2; Monocytes # (A) 0.3 k/uL (0-1.0); Monocytes % (A) 2 %; Neutrophils # (A) 12.8 k/uL (1.3-7.7); Neutrophils % (A) 92 %; Platelet Count 318 k/uL (150-450); RBC 4.85 m/uL (3.80-5.40); RDW 13.9 % (11.5-15.5); WBC 13.9 k/uL (3.8-10.6)
[2024-04-19 10:44] LABS: African American GFR (CKD) 71 (>60 ml/min/1.73 sqM); Anion Gap 7 mmol/L; Blood Urea Nitrogen 16 mg/dL (7-17); Carbon Dioxide 24 mmol/L (22-30); Chloride 105 mmol/L (98-107); Glucose 127 mg/dL (74-99); Non-African American GFR(CKD) 61 (>60 ml/min/1.73 sqM); Potassium 4.1 mmol/L (3.5-5.1); Sodium 136 mmol/L (137-145)
--- NOTE | 2024-04-19 13:58 | CC ---
CARDIAC CATHETERIZATION REPORT INDICATION: Abnormal stress test. PROCEDURE NOTE: After obtaining informed consent, left heart catheterization and coronary angiogram were performed via the right radial artery using standard Iman catheters. The patient tolerated the procedure well without any obvious immediate complications. A TR band will be used for hemostasis. Received moderate conscious sedation. Total sedation time was 13 minutes. Right radial artery access was obtained using Seldinger technique. A 6-[place] sheath was placed. Catheters and wires were floated into the ascending aorta under fluoroscopic guidance. The patient received verapamil and heparin per protocol. FINDINGS: 1. HEMODYNAMICS: Left ventricular end-diastolic pressure is 18 mm. There is no significant gradient across the aortic valve. 2. LEFT VENTRICULOGRAM: Left ventriculogram is not performed. 3. ANGIOGRAPHIC DATA: a.Right coronary artery: Right coronary artery is a large dominant vessel and is free of significant disease. Left main coronary artery is a short vessel, divides into left anterior descending coronary artery and circumflex coronary artery. b.LAD and its branches, circumflex coronary artery and its branches are free of significant stenosis. CONCLUSIONS: 1. Normal coronary arteries. 2. False-positive stress test. MMODL / IJN: [id number] /
[2024-04-19 18:02] VITALS: TEMP 98.3
[2024-04-19 18:10] VITALS: RESP 16
[2024-04-19 19:21] VITALS: BP 159/94; PULSE 72
== END ==
LOC: CATHCVL 09:29
PROVIDERS: ATTEND Internal Medicine Cardiovascular Disease
DX: R94.39 Abnormal result of other cardiovascular function study (principal); I10 Essential (primary) hypertension; Z82.49 Family history of ischemic heart disease and other diseases of the circulatory system; Z79.82 Long term (current) use of aspirin; Z79.899 Other long term (current) drug therapy
CPT/HCPCS: 80048; 85025; 93458; J2250; J1644 ×3; J2003; J3010; Q9967

== ENCOUNTER → 2024-05-17 | Outpatient (CLI) | payer MEDICARE ==
--- NOTE | 2024-05-17 11:26 | MR ---
EXAMINATION TYPE: MR brain wo/w con DATE OF EXAM: 05/17/2024 11:03 AM COMPARISON: 08/08/2022 CLINICAL INDICATION: Female, 73 years old with history of R42 DIZZINESS AND GIDDINESS, Dizziness, gid diness IV Contrast: 9 cc Gadobutrol (None if empty) TECHNIQUE: Multiplanar, multisequence images of the brain and brainstem is performed without and with IV contras t, utilizing 9 mL intravenous Gadobutrol . FINDINGS: Diffusion weighted images demonstrate no evidence of a recent infarct or other diffusion ab normality. [id number] degenerative changes in the greater frontal lobe component. Areas of abnormal signal in the white matter are nonspecific but most remote white matter ischemia. No midline shift or mass effect. Mild changes of chronic sinusitis and right mastoiditis. Orbits are symmetric. Midline structures demonstrate normal morphology. The craniocervical junction appears within normal limits. Post contrast images demonstrate no abnormal enhancement. The dural venous sinuses appear pa tent. IMPRESSION: 1. Mild to moderate degenerative change with no acute process. 2. Mild ethmoidal chronic sinusitis and right-sided mastoiditis. [facility], , 05/17/2024 11:24 AM
== END | disposition home or self-care (01) ==
LOC: RADMRIMAIN 09:50
PROVIDERS: ATTEND Internal Medicine
DX: H70.91 Unspecified mastoiditis, right ear (principal); J32.9 Chronic sinusitis, unspecified; R42 Dizziness and giddiness
CPT/HCPCS: 70553; A9585

== ENCOUNTER → 2024-07-04 | Outpatient (CLI) | payer MEDICARE ==
[2024-07-04 12:45] LABS: African American GFR (CKD) 73 (>60 ml/min/1.73 sqM); Blood Urea Nitrogen 14 mg/dL (7-17); Non-African American GFR(CKD) 64 (>60 ml/min/1.73 sqM)
--- NOTE | 2024-07-04 13:58 | CT ---
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 CT DLP: [address] CTDI: mGy Automated exposure control for dose reduction was used. FINDINGS: The lung bases are clear. There is surgical absence of the gallbladder. There is no biliary ductal dilatation. There is no focal mass or organomegaly involving the liver, pancreas, spleen or adrenal glands. There is no solid renal mass or hydronephrosis and there is homogeneous contrast enhancement of the r enal parenchyma. The caliber the abdominal aorta is normal is no retroperitoneal adenopathy or hemorr michael. The bowel loops are normal in caliber and there is no evidence of dilatation or obstruction. No infla mmatory changes are identified in the bowel wall or mesentery. There is no free intraperitoneal air or fluid. No pelvic mass, free fluid, abscess or adenopathy. There is advanced degenerative disease throughout the lumbar spine and lower thoracic spine. Grade 1 anterolisthesis of L4 on L5. There are no focal osseous lesions. IMPRESSION: 1. No acute changes within the abdomen and pelvis. 2. Advanced degenerative disc disease throughout the lumbar spine and lower thoracic spine with grade 1 anterolisthesis of L4 and L5. [facility], , 07/04/2024 1:56 PM
== END | disposition home or self-care (01) ==
LOC: RADCTMAIN 11:57
PROVIDERS: ATTEND Internal Medicine Hematology & Oncology
DX: M51.369 Other intervertebral disc degeneration, lumbar region without mention of lumbar back pain or lower extremity pain (principal); M43.16 Spondylolisthesis, lumbar region; Z90.49 Acquired absence of other specified parts of digestive tract; Z85.820 Personal history of malignant melanoma of skin; Z80.0 Family history of malignant neoplasm of digestive organs; D61.818 Other pancytopenia; N18.9 Chronic kidney disease, unspecified; I10 Essential (primary) hypertension; Z71.3 Dietary counseling and surveillance
CPT/HCPCS: 82565; 84520; 74177; 36415; Q9967